=== PATIENT | male | born 1945 | race Caucasian/White ===

== ENCOUNTER → 2017-07-18 | Outpatient (CLI) | payer OTHER | LOC: FIMAGING 15:46 | PROVIDERS: ATTEND Orthopaedic Surgery | DX: M17.12 Unilateral primary osteoarthritis, left knee (principal); M11.262 Other chondrocalcinosis, left knee; M71.22 Synovial cyst of popliteal space [Baker], left knee ==

== ENCOUNTER 2017-08-18 09:25 | Observation (INO) | payer OTHER ==
--- NOTE | 2017-08-18 07:10 | PDHPUP ---
History & Physical Update H&P update statement: This history and physical update is based on an assessment of the patient which was completed after admission or registration (within 24 hours), but prior to the surgery/procedure. H&P update: no change in patient's condition since H&P completed
--- NOTE | 2017-08-18 07:11 | PDIAF ---
- Diagnosis Diagnosis: L knee arthritis Code Status: Full Code - Medication Management Discharge Medications: Medications to Continue on Transfer Acetaminophen [Tylenol 325mg (*)] 650 mg PO DAILY20 07/18/17 [Last Taken Unknown ] Levothyroxine [Synthroid 150 mcg (*)] 150 mcg PO DAILY06 07/18/17 [Last Taken Unknown] Nabumetone [Relafen 500 mg (*)] 500 mg PO BIDMEAL 07/18/17 [Last Taken Unknown] Simvastatin [Zocor] 40 mg PO HS 07/18/17 [Last Taken Unknown] Discharge Medications: Refer to the Discharge Home Medication list for PRN reason. - Orders Services needed: Physical Therapy Activity/Weight Bearing Restrictions: WBAT, daily dressing changes, may shower without dressing, no soaking - Follow Up Care Current Providers and Referrals: Patient,NotPresent [Primary Care Provider] -
[~2017-08-18 09:25] MED LIST: BUPI/epINEPH/KETOROLAC/morphINE IU ONE; CALCIUM CHLORIDE 1 GM/10 ML INJ ONE; NS IV ONE; ROPIVACAINE 0.2% 80 MG, EPINEPHrine 0.2 MG, KETOROLAC TROMETHAMINE 30 MG, morphINE 10 M... IU ONE; THROMBIN (BOVINE) 5,000 UNIT VIAL TP ONE; TRANEXAMIC ACID IV ONE; ceFAZolin 1 GM/5 ML SYR ONE
[2017-08-18] MEDS ORDERED: ceFAZolin 2 GM/SWFI 2 GM/20 ML SYR IVP ONE (10:22)
[2017-08-18] MEDS ORDERED: ACETAMINOPHEN 325 MG TAB PO ONE (10:22)
[2017-08-18] MEDS ORDERED: FAMOTIDINE 20 MG TAB PO ONE (10:22)
[2017-08-18] MEDS ORDERED: LIDOCAINE 1% 2 ML INJ ID PRN (11:01)
[2017-08-18] MEDS ORDERED: LR 1,000 ML IV ONE (11:01)
[2017-08-18] MEDS ORDERED: LIDOCAINE 1% 2 ML INJ ONE (11:05)
--- NOTE | 2017-08-18 11:11 | PDANEPAE ---
ANE Past Medical History - Cardiovascular History Hx Hypertension: No Hx Arrhythmias: No Hx Chest Pain: No Hx Coronary Artery / Peripheral Vascular Disease: No Hx CHF / Valvular Disease: No Hx Palpitations: No Cardiovascular History Comment: HEART MURMUR - Pulmonary History Hx COPD: No Hx Asthma/Reactive Airway Disease: No Hx Recent Upper Respiratory Infection: No Hx Oxygen in Use at Home: No Hx Sleep Apnea: No Sleep Apnea Screening Result - Last Documented: Negative - Neurologic History Hx Cerebrovascular Accident: No Hx Seizures: No Hx Dementia: No - Endocrine History Hx Diabetes: Yes Endocrine History Comment: HYPOTHYROID - Renal History Hx Renal Disorders: No - Liver History Hx Hepatic Disorders: No - Neurological & Psychiatric Hx Hx Neurological and Psychiatric Disorders: No - Cancer History Hx Cancer: No - GI History Hx Gastrointestinal Disorders: No - Other Health History Other Health History: OSTEOARTHRITIS. 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 LT ING HERNIA WITH MESH 04/2014. LT KNEE SCOPE. SALIVARY GLAND ANE Review of Systems Review of Systems: - Exercise capacity METS (RN): 5 METS ANE Patient History - Allergies Allergies/Adverse Reactions: No Known Allergies Allergy (Unverified 07/18/17 15:41) - Home Medications Home Medications: Acetaminophen [Tylenol 325mg (*)] 650 mg PO DAILY20 07/18/17 [Last Taken Unknown ] Levothyroxine [Synthroid 150 mcg (*)] 150 mcg PO DAILY06 07/18/17 [Last Taken Unknown] Nabumetone [Relafen 500 mg (*)] 500 mg PO BIDMEAL 07/18/17 [Last Taken Unknown] Simvastatin [Zocor] 40 mg PO HS 07/18/17 [Last Taken Unknown] - Smoking Hx Smoking Status: Never smoked ANE Labs/Vital Signs - Vital Signs Height: 176.53 cm Weight: 86.183 kg ANE Physical Exam - Airway Neck exam: FROM Mallampati Score: Class 2 Mouth exam: normal dental/mouth exam - Pulmonary Pulmonary: no respiratory distress - Cardiovascular Cardiovascular: regular rate and rhythym - ASA Status ASA Status: II ANE Anesthesia Plan Anesthesia Plan: spinal
[2017-08-18] MEDS ORDERED: PROPOFOL/EMULSION 500 MG/50 ML BOTTLE IV ONE (11:14)
[2017-08-18] MEDS ORDERED: fentaNYL 100 MCG/2 ML INJ ONE (11:14)
[2017-08-18] MEDS ORDERED: BUPIVACAINE/DEXTROSE 7.5MG/ML 2 ML SPINAL AMP SP ONE (11:17)
[2017-08-18] MEDS ORDERED: LIDOCAINE 2% 100 MG/5 ML SYR ONE (11:17)
[2017-08-18] MEDS ORDERED: DEXAMETHASONE 4 MG/ML VIAL ONE (11:17)
[2017-08-18] MEDS ORDERED: PROPOFOL 200 MG/20 ML VIAL ONE ×2 (12:35→13:04)
[2017-08-18] MEDS ORDERED: METOCLOPRAMIDE 10 MG/2 ML VIAL IVP PRN (13:45)
[2017-08-18] MEDS ORDERED: PROMETHAZINE HCL 25 MG/ML INJ IVP PRN (13:45)
[2017-08-18] MEDS ORDERED: PROMETHAZINE HCL 25 MG SUPPR PR PRN (13:45)
[2017-08-18] MEDS ORDERED: ONDANSETRON DISINTEGRATING 4 MG TAB PO PRN (13:45)
[2017-08-18] MEDS ORDERED: ONDANSETRON 4 MG/2 ML VIAL IVP PRN (13:45)
[2017-08-18] MEDS ORDERED: POLYETHYLENE GLYCOL 3350 17 GM PKT PO PRN (13:45)
[2017-08-18] MEDS ORDERED: TEMAZEPAM 15 MG CAP PO PRN (13:45)
[2017-08-18] MEDS ORDERED: LACTULOSE 20 GM/30 ML UDCUP PO PRN (13:45)
[2017-08-18] MEDS ORDERED: DIPHENOXYLATE/ATROPINE LOMOTIL 1 TAB PO PRN (13:45)
[2017-08-18] MEDS ORDERED: diphenhydrAMINE 25 MG CAP PO PRN (13:45)
[2017-08-18] MEDS ORDERED: DIAZEPAM 5 MG TAB PO PRN (13:45)
[2017-08-18] MEDS ORDERED: BISACODYL 10 MG SUPP PR PRN (13:45)
[2017-08-18] MEDS ORDERED: oxyCODONE IR 5 MG TAB PO PRN (13:45)
[2017-08-18] MEDS ORDERED: MAGNESIUM HYDROXIDE 30 ML UDCUP PO PRN (13:45)
[2017-08-18] MEDS ORDERED: NALOXONE HCL 0.4 MG/ML INJ IVP PRN (13:51)
[2017-08-18] MEDS ORDERED: fentaNYL 100 MCG/2 ML INJ IVP PRN (13:51)
--- NOTE | 2017-08-18 13:53 | POSTANESTH ---
Post Anesthetic Evaluation Cardiovascular Status: Similar to Pre-Op Cond Respiratory Status: Similar to Pre-op Cond. Level of Consciousness/Mental Status: Alert and Oriented Pain Control: Adequate, Prn Tx Ordered Nausea/Vomiting Control: Adequate, Prn Tx Ordered Complications Possibly Related to Anesthesia: None Noted
[2017-08-18] MEDS ORDERED: ceFAZolin 2 GM/DEXTROSE 100 ML IV SCH (14:00)
[2017-08-18] MEDS ORDERED: LR 1,000 ML IV SCH (14:00)
[2017-08-18] MEDS: TRANEXAMIC ACID 650 MG TAB PO SCH ×2 (16:14→22:27)
[2017-08-18] MEDS: ACETAMINOPHEN 325 MG TAB PO SCH ×2 (18:06→23:53)
[2017-08-18] MEDS: SENNOSIDES/DOCUSATE SODIUM TAB PO SCH (20:19)
[2017-08-18] MEDS: ceFAZolin 2 GM/SWFI 2 GM/20 ML SYR IVP SCH (20:19)
[2017-08-18] MEDS: FAMOTIDINE 20 MG TAB PO SCH (20:20)
[2017-08-18] MEDS ORDERED: ATORVASTATIN CALCIUM 20 MG TAB PO SCH (21:00)
[2017-08-18] MEDS: ASPIRIN 325 MG TAB PO SCH (22:28)
[2017-08-19] MEDS: ceFAZolin 2 GM/SWFI 2 GM/20 ML SYR IVP SCH (04:32)
[2017-08-19] MEDS: TRANEXAMIC ACID 650 MG TAB PO SCH (05:45)
[2017-08-19] MEDS: ACETAMINOPHEN 325 MG TAB PO SCH (05:45)
[2017-08-19] MEDS ORDERED: LEVOTHYROXINE 150 MCG TAB PO SCH (06:00)
[2017-08-19 07:46] VITALS: BP 147/86; PULSE 60; RESP 14; TEMP 98.2; O2SAT 97
--- NOTE | 2017-08-19 07:56 | SOAPPROG ---
SOAP Progress Note Assessment/Plan: Assessment: s/p left tka Plan:d/c home when cleared by pt dvt precatuions seek attn for increasing pain, or other focal complaint f/u at two weeks 08/19/17 07:54 Subjective: min pain no cp or sob mayur po Objective: Vital Signs Temp Pulse Resp BP Pulse Ox 36.8 C 60 14 147/86 H 97 08/19/17 07:41 08/19/17 07:41 08/19/17 07:41 08/19/17 07:41 08/19/17 07:41 Laboratory Results 08/19/17 04:22 08/18/17 08/19/17 08/20/17 05:59 05:59 05:59 Intake Total 1100 Output Total 1170 Balance -70 dressing intact pf,df,ehl intact neg homans warren xrays stable no fx no lucency ICD10 Worksheet Patient Problems: Problems Problem Status Onset Arthritis of knee, left Acute - ICD10 Problem Qualifiers (1) Arthritis of knee, left
--- NOTE | 2017-08-19 07:56 | PDIAF ---
- Diagnosis Diagnosis: L knee arthritis Code Status: Full Code - Medication Management Discharge Medications: Medications to Continue on Transfer Acetaminophen [Tylenol 325mg (*)] 650 mg PO DAILY20 07/18/17 [Last Taken ] Levothyroxine [Synthroid 150 mcg (*)] 150 mcg PO DAILY06 07/18/17 [Last Taken ] Nabumetone [Relafen 500 mg (*)] 500 mg PO BIDMEAL 07/18/17 [Last Taken 08/12/17] Simvastatin [Zocor] 40 mg PO HS 07/18/17 [Last Taken 08/17/17] Aspirin [Aspirin 325 mg (*)] 325 mg PO DAILY tab 08/19/17 [Last Taken Unknown] oxyCODONE IR [Oxycodone Ir (*)] 5 - 10 mg PO Q3HRS PRN #90 tab 08/19/17 [Last Taken Unknown] Discharge Medications: Refer to the Discharge Home Medication list for PRN reason. - Orders Services needed: Physical Therapy Diet Recommendation: no restrictions on diet Diet Texture: Regular Texture Diet Activity/Weight Bearing Restrictions: WBAT, daily dressing changes, may shower without dressing, no soaking - Follow Up Care Current Providers and Referrals: Patient,NotPresent [Unknown] -
[2017-08-19] MEDS: ASPIRIN 325 MG TAB PO SCH (08:14)
[2017-08-19] MEDS: SENNOSIDES/DOCUSATE SODIUM TAB PO SCH (08:14)
[2017-08-19] MEDS: FAMOTIDINE 20 MG TAB PO SCH (08:15)
== END 2017-08-19 12:04 | disposition home health service (06) ==
LOC: F3N 10:40 → INTOOBSV 10:40 → F3N 15:01
PROVIDERS: ADMIT Orthopaedic Surgery; ATTEND Orthopaedic Surgery
PROC: 3E0U3GC Introduction of Other Therapeutic Substance into Joints, Percutaneous Approach (ICD-10-PCS; principal; 2017-08-18 13:00)
PROC: 8E0YXBZ Computer Assisted Procedure of Lower Extremity (ICD-10-PCS; principal; 2017-08-18 13:00)
PROC: 0SRD0JA Replacement of Left Knee Joint with Synthetic Substitute, Uncemented, Open Approach (ICD-10-PCS; principal; 2017-08-18 13:00)
DX: M17.12 Unilateral primary osteoarthritis, left knee (principal); R03.0 Elevated blood-pressure reading, without diagnosis of hypertension; E78.5 Hyperlipidemia, unspecified; E03.9 Hypothyroidism, unspecified
CPT/HCPCS: 0232T; 20985; 27447; 73560; 88305; 88311; 97110; 97161; 97165; C1776; G8978; G8979; G8980; G8987; G8988; G8989; J0171; J0690; J1100; J1885; J2001; J2270; J2704; J3010

== ENCOUNTER 2017-08-24 14:38 | Emergency (ER) | payer OTHER ==
--- NOTE | 2017-08-24 15:12 | EDPHY ---
H & P Time Seen by Provider: 08/24/17 14:49 HPI/ROS: CHIEF COMPLAINT: Left knee swelling/erythema following surgery HISTORY OF PRESENT ILLNESS: This patient is a 71 y/o male s/p left TKA 08/18/[address] Salvador arriving with his complaining of upper left leg swelling and erythema. He has been feeling well since the surgery and is taking minimal pain medication. He has attended his physical therapy sessions as directed. Today, he and his noted increased swelling and redness around his knee and extending up the medial thigh. They are concerned for DVT. No fever, increased pain, vomiting, weakness, chest pain, shortness of breath, headache, or other associated symptoms. REVIEW OF SYSTEMS: A 10 point review of systems was performed and is negative with the exception of the elements mentioned in the history of present illness. Past Medical/Surgical History: Hypothyroid. Left knee replacement. Social History: Nonsmoker. . at bedside. Lives in [place]. Smoking Status: Never smoked Physical Exam: General Appearance: Alert, pleasant, well-appearing Eyes: Pupils equal and round, no conjunctival pallor or injection ENT, Mouth: Mucous membranes moist Neck: Normal inspection Respiratory: Lungs are clear to auscultation Cardiovascular: Regular rate and rhythm, 2/6 systolic murmur Gastrointestinal: Abdomen is soft and non-tender Neurological: A&O, nonfocal exam Skin: Warm and dry Extremities: Left knee: Surgical incision covered by dressings. Erythema, warmth , and swelling around the incision site on the medial aspect of the knee that extends up medial thigh to inguinal area; no tenderness over this area. Psychiatric: Mood and affect normal Constitutional: Initial Vital Signs Temperature (C) 37.1 C 08/24/17 14:42 Heart Rate 82 08/24/17 14:42 Respiratory Rate 18 08/24/17 14:42 Blood Pressure 155/82 H 08/24/17 14:42 O2 Sat (%) 93 08/24/17 14:42 O2 Delivery Mode Room Air Allergies/Adverse Reactions: No Known Allergies Allergy (Verified 08/24/17 14:41) Home Medications: Medication Instructions Recorded Acetaminophen [Tylenol 325mg (*)] 650 mg PO DAILY20 07/18/17 Levothyroxine [Synthroid 150 mcg 150 mcg PO DAILY06 07/18/17 (*)] Nabumetone [Relafen 500 mg (*)] 500 mg PO BIDMEAL 07/18/17 Simvastatin [Zocor] 40 mg PO HS 07/18/17 Aspirin [Aspirin 325 mg (*)] 325 mg PO DAILY tab 08/19/17 oxyCODONE IR [Oxycodone Ir (*)] 5 - 10 mg PO Q3HRS PRN #90 tab 08/19/17 Cephalexin [Keflex (*)] 500 mg PO QID #40 cap 08/24/17 Medical Decision Making - Diagnostics Imaging Results: Imaging Impressions Extremity Venous Study 08/24/17 14:50 Impression: 1. No deep venous thrombosis in the left lower extremity. 2. 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 Findings discussed with Yin Orellana M.D. at 16:06 hour, 08/24/2017. Imaging: Discussed imaging studies w/ infrastructure technician Radiologist ED Course/Re-evaluation: 71 y/o male presents with left leg erythema, warmth, and swelling following a TKA 08/18/17, six days ago. Exam is more consistent with infection than DVT. Plan for US LLE to r/o DVT. Plan for labs including CBC, chemistries, blood cultures. Plan to consult with Dr. Salvador. The patient will send a photo of his leg to Dr. Salvador for evaluation. 15:[address] Salvador, the patient's orthopedic surgeon. Photos of the patient's leg reviewed with Dr. Salvador. WBC normal. 16:[address] Romero, radiologist. US LLE negative for DVT. 16:32 Removed surgical dressing. The wound is clean, dry, and intact, and not erythematous. There is fluctuance under the surgical wound. Considered arthrocentesis for evaluation for the possibility of septic joint. However, on my exam, the patient's left knee has surrounding erythema laterally as well as medially. Plan to consult with Dr. Salvador. 16:[address] Salvador. Given no DVT, no leukocytosis and no fever, Dr. Salvador doubts infection. We will send the patient home on oral antibiotics and Dr. Salvador will see the patient in the office tomorrow morning. Differential Diagnosis: includes though not limited to joint infection, cellulitis, DVT. - Data Points Laboratory Results: Laboratory Results 08/24/17 15:58 18 15:58 18 08/24/17 15:58 15:58 WBC 6.23 10^3/uL 10^3/uL (3.80-9.50) RBC 3.37 10^6/uL L 10^6/uL (4.40-6.38) Hgb 10.7 g/dL L g/dL (13.7-17.5) Hct 30.8 % L % (40.0-51.0) MCV 91.4 fL fL (81.5-99.8) MCH 31.8 pg pg (27.9-34.1) MCHC 34.7 g/dL g/dL (32.4-36.7) RDW 12.5 % % (11.5-15.2) Plt Count 210 10^3/uL 10^3/uL (150-400) MPV 8.9 fL fL (8.7-11.7) Neut % (Auto) 69.4 % % (39.3-74.2) Lymph % (Auto) 14.4 % L % (15.0-45.0) [place] % (Auto) 12.8 % % (4.5-13.0) Eos % (Auto) 2.4 % % (0.6-7.6) Baso % (Auto) 0.5 % % (0.3-1.7) Nucleat RBC Rel Count 0.0 % % (0.0-0.2) Absolute Neuts (auto) 4.32 10^3/uL 10^3/uL (1.70-6.50) Absolute Lymphs (auto) 0.90 10^3/uL L 10^3/uL (1.00-3.00) Absolute Monos (auto) 0.80 10^3/uL 10^3/uL (0.30-0.80) Absolute Eos (auto) 0.15 10^3/uL 10^3/uL (0.03-0.40) Absolute Basos (auto) 0.03 10^3/uL 10^3/uL (0.02-0.10) Absolute Nucleated RBC 0.00 10^3/uL 10^3/uL (0-0.01) Immature Gran % 0.5 % % (0.0-1.1) Immature Gran # 0.03 10^3/uL 10^3/uL (0.00-0.10) Sodium 139 mEq/L mEq/L (135-145) Potassium 4.1 mEq/L mEq/L (3.5-5.2) Chloride 102 mEq/L mEq/L (97-110) Carbon Dioxide 26 mEq/l mEq/l (22-31) Anion Gap 11 mEq/L mEq/L (8-16) BUN 20 mg/dL mg/dL (7-23) Creatinine 0.8 mg/dL mg/dL (0.7-1.3) Estimated GFR > 60 Glucose 109 mg/dL H mg/dL (70-100) Calcium 8.4 mg/dL L mg/dL (8.5-10.4) Medications Given: Discontinued Medications Cephalexin HCl (Keflex) 500 mg PO EDNOW ONE PRN Reason: Protocol Stop: 08/24/17 16:43 Last Admin: 08/24/17 17:17 Dose: 500 mg Departure - Departure Disposition: Home, Routine, Self-Care Clinical Impression: Cellulitis Qualifiers: Site of cellulitis: extremity Site of cellulitis of extremity: lower extremity Laterality: left Qualified Code(s): L03.116 - Cellulitis of left lower limb Condition: Good Instructions: Cellulitis (ED) Additional Instructions: 1. Follow up with Dr. Salvador in the office tomorrow. 2. Take Keflex as prescribed. 3. Return to the emergency department for increased redness, swelling, warmth, or discharge around your surgical site or for fever, vomiting, chest pain, shortness of breath, or further concerns. Referrals: Evans Freeman MD [Primary Care Provider] - As per Instructions Sherman Salvador MD [Medical Doctor] - As per Instructions (Call tomorrow morning. Dr. Salvador will see you in the morning.) Prescriptions: Cephalexin [Keflex (*)] 500 mg PO QID #40 cap Report Scribed for: Yin Orellana Report Scribed by: Migdalia Bobby Date of Report: 08/24/17 Time of Report: 15:12 Physician Review and Approval Statement: 08/24/17 15:12 Portions of this note were transcribed by a medical lab technologist. I personally performed a history, physical exam, medical decision making, and confirmed accuracy of information the transcribed note.
[2017-08-24 16:09] LABS: PLATELET COUNT 210 10^3/uL (150-400)
[2017-08-24] MEDS ORDERED: CEPHALEXIN 500 MG CAP PO ONE (16:42)
[2017-08-24 17:32] VITALS: BP 132/84
== END 2017-08-24 17:32 | disposition home or self-care (01) ==
DX: L03.116 Cellulitis of left lower limb (principal); M71.22 Synovial cyst of popliteal space [Baker], left knee; Z79.82 Long term (current) use of aspirin

== ENCOUNTER 2017-09-24 05:22 | Observation (INO) | payer OTHER ==
--- NOTE | 2017-09-24 05:30 | EDPHY ---
H & P Stated Complaint: Right leg pain, pt had left knee surgery 08/18 Time Seen by Provider: 09/24/17 05:30 HPI/ROS: HPI CHIEF COMPLAINT: Right leg pain, sharp stabbing HISTORY OF PRESENT ILLNESS: This patient is a 71-year-old male, otherwise pretty healthy, presents emergency room with right leg pain. Patient states this woke him up from sleep around 3:00 a.m. Sharp stabbing pain that right radiates down his right gluteus into his right leg knee. Does not go below his knee. He denies any trauma. He recently last month had left knee surgery at total knee and he has been compensating with his right leg. He describes the pain as sharp stabbing rather intense 8/10 pain. Worse with leg movement. Denies midline back pain. Denies fever chest pain or shortness of breath. Additionally an incidental finding as a erythematous lesion on his gluteus with central clearing like a bug bite. His and him do not feel that this has anything to do with this pain. Right leg is neurovascular intact with good distal pulse, good cap refill. Symptoms are consistent with sciatica Past Medical History: No significant medical history Past Surgical History: Recent left knee surgery TKA. Social History: Denies drugs alcohol tobacco. Family History: Noncontributory ROS REVIEW OF SYSTEMS: A comprehensive 10 point review of systems is otherwise negative aside from elements mentioned in the history of present illness. Exam Constitutional appears well nontoxic no acute distress triage nursing summary reviewed, vital signs reviewed, awake/alert. Eyes normal conjunctivae and sclera, EOMI, PERRLA. HENT normal inspection, atraumatic, moist mucus membranes, no epistaxis, neck supple/ no meningismus, no raccoon eyes. Respiratory clear to auscultation bilaterally, normal breath sounds, no respiratory distress, no wheezing. Cardiovascular rate normal, regular rhythm, no murmur, no edema, distal pulses normal. Gastrointestinal soft, non-tender, no rebound, no guarding, normal bowel sounds, no distension, no pulsatile mass. Genitourinary no CVA tenderness. Musculoskeletal lumbar spine no midline back pain, no midline vertebral tenderness, full range of motion, no calf swelling, no tenderness of extremities , no meningismus, good pulses, neurovascularly intact. Right lower extremity shows a good distal pulse, good cap refill, full range of motion. Skin pink, warm, & dry, no rash, skin atraumatic. Neurologic awake, alert and oriented x 3, AAOx3, moves all 4 extremities equally, motor intact, sensory intact, CN II-XII intact, normal cerebellar, normal vision, normal speech. Psychiatric normal mood/affect. Heme/Lymph/Immune no lymphadenopathy. Differential Diagnosis: Includes but is not limited to in a particular order, sciatica, nerve root compression, annular tear, compression fracture, degenerative joint disease, referred hip pain, SI joint discomfort Medical Decision Making: Plan for this patient IV establishment with IV fentanyl 100 mcg for acute pain control, IV Decadron 10 mg, x-ray lumbar spine and right hip and re-evaluate. Re-evaluation: X-ray of the lumbar spine as well as right hip reviewed by myself. There is degenerative disc disease and joint disease of the lumbar spine. No acute compression fracture visualized. The right hip x-ray also reviewed by myself does not show any acute fracture. 0656: Re-examination at this time patient has ongoing sciatica pain despite multiple rounds of pain medication. He received multiple rounds of Dilaudid, Toradol, fentanyl, Decadron and despite this continues to have pain. I gave him multiple options about going home with pain medicine additionally gave him the option to be admitted the hospital for pain control and further evaluation of this sciatic pain. He would like to be admitted to the hospital for ongoing pain. Lengthy discussion with the patient he prefers to be admitted for pain control. Spoke with Dr. Berrios Who agrees to admit. Intractable right leg pain/sciatica. Source: Patient - Personal History Current Tetanus/Diphtheria Vaccine: Yes Current Tetanus Diphtheria and Acellular Pertussis (TDAP): Yes - Medical/Surgical History Hx Asthma: No Hx Chronic Respiratory Disease: No Hx Diabetes: No Hx Cardiac Disease: No Hx Renal Disease: No Hx Cirrhosis: No Hx Alcoholism: No Hx HIV/AIDS: No Hx Splenectomy or Spleen Trauma: No Other PMH: hypothyroid/l knee replacement - Social History Smoking Status: Never smoked Constitutional: Initial Vital Signs Temperature (C) 36.6 C 09/24/17 05:23 Heart Rate 64 09/24/17 05:23 Respiratory Rate 18 09/24/17 05:23 Blood Pressure 182/105 H 09/24/17 05:23 O2 Sat (%) 97 09/24/17 05:23 O2 Delivery Mode Room Air Allergies/Adverse Reactions: No Known Allergies Allergy (Verified 09/24/17 05:25) Home Medications: Medication Instructions Recorded Acetaminophen [Tylenol 325mg (*)] 650 mg PO DAILY20 07/18/17 Levothyroxine [Synthroid 150 mcg 150 mcg PO DAILY06 07/18/17 (*)] Nabumetone [Relafen 500 mg (*)] 500 mg PO BIDMEAL 07/18/17 Simvastatin [Zocor] 40 mg PO HS 07/18/17 Aspirin [Aspirin 325 mg (*)] 325 mg PO DAILY tab 08/19/17 oxyCODONE IR [Oxycodone Ir (*)] 5 - 10 mg PO Q3HRS PRN #90 tab 08/19/17 Cephalexin [Keflex (*)] 500 mg PO QID #40 cap 08/24/17 Dexamethasone [Decadron 4 MG (*)] 8 mg PO DAILY #3 tab 09/24/17 Hydrocodone/APAP 5/325 [[place] 1 - 2 tab PO Q4H PRN #14 tab 09/24/17 5/325] Medical Decision Making - Data Points Laboratory Results: Laboratory Results 09/24/17 05:40 09/24/17 05:40 09/24/17 09/24/17 05:40 05:40 WBC 6.34 10^3/uL 10^3/uL (3.80-9.50) RBC 4.54 10^6/uL 10^6/uL (4.40-6.38) Hgb 14.2 g/dL g/dL (13.7-17.5) Hct 40.6 % % (40.0-51.0) MCV 89.4 fL fL (81.5-99.8) MCH 31.3 pg pg (27.9-34.1) MCHC 35.0 g/dL g/dL (32.4-36.7) RDW 14.0 % % (11.5-15.2) Plt Count 186 10^3/uL 10^3/uL (150-400) MPV 9.3 fL fL (8.7-11.7) Neut % (Auto) 67.2 % % (39.3-74.2) Lymph % (Auto) 21.1 % % (15.0-45.0) [place] % (Auto) 7.7 % % (4.5-13.0) Eos % (Auto) 3.2 % % (0.6-7.6) Baso % (Auto) 0.6 % % (0.3-1.7) Nucleat RBC Rel Count 0.0 % % (0.0-0.2) Absolute Neuts (auto) 4.26 10^3/uL 10^3/uL (1.70-6.50) Absolute Lymphs (auto) 1.34 10^3/uL 10^3/uL (1.00-3.00) Absolute Monos (auto) 0.49 10^3/uL 10^3/uL (0.30-0.80) Absolute Eos (auto) 0.20 10^3/uL 10^3/uL (0.03-0.40) Absolute Basos (auto) 0.04 10^3/uL 10^3/uL (0.02-0.10) Absolute Nucleated RBC 0.00 10^3/uL 10^3/uL (0-0.01) Immature Gran % 0.2 % % (0.0-1.1) Immature Gran # 0.01 10^3/uL 10^3/uL (0.00-0.10) Sodium 138 mEq/L mEq/L (135-145) Potassium 4.0 mEq/L mEq/L (3.5-5.2) Chloride 105 mEq/L mEq/L (97-110) Carbon Dioxide 21 mEq/l L mEq/l (22-31) Anion Gap 12 mEq/L mEq/L (8-16) BUN 23 mg/dL mg/dL (7-23) Creatinine 0.9 mg/dL mg/dL (0.7-1.3) Estimated GFR > 60 Glucose 107 mg/dL H mg/dL (70-100) Calcium 9.6 mg/dL mg/dL (8.5-10.4) Medications Given: Discontinued Medications Dexamethasone (Decadron Injection) 10 mg IVP EDNOW ONE Stop: 09/24/17 05:41 Last Admin: 09/24/17 05:52 Dose: 10 mg Fentanyl (Sublimaze) 100 mcg IVP EDNOW ONE Stop: 09/24/17 05:44 Last Admin: 09/24/17 05:51 Dose: 100 mcg Hydromorphone HCl (Dilaudid) 0.5 mg IVP EDNOW ONE Stop: 09/24/17 06:28 Last Admin: 09/24/17 06:33 Dose: 0.5 mg Hydromorphone HCl (Dilaudid) 0.5 mg IVP EDNOW ONE Stop: 09/24/17 06:49 Last Admin: 09/24/17 06:49 Dose: 0.5 mg Sodium Chloride (Ns) 1,000 mls @ 0 mls/hr IV ONCE ONE PRN Reason: Wide Open Stop: 09/24/17 05:41 Last Admin: 09/24/17 05:48 Dose: 1,000 mls Ketorolac Tromethamine (Toradol) 15 mg IVP EDNOW ONE Stop: 09/24/17 06:27 Last Admin: 09/24/17 06:32 Dose: 15 mg Ondansetron HCl (Zofran) 4 mg IVP EDNOW ONE Stop: 09/24/17 05:41 Last Admin: 09/24/17 05:48 Dose: 4 mg Departure - Departure Disposition: [facility] Inpatient Acute Clinical Impression: Sciatic leg pain Condition: Good Instructions: Sciatica (ED), Lumbar Radiculopathy (ED) Additional Instructions: 1. Return emergency room if you have worsening pain fever vomiting or you do not feel well. 2. Follow up with her primary care doctor. 3. Decadron and [place] as prescribed. Referrals: Sherman Salvador MD [Primary Care Provider] - As per Instructions Prescriptions: Dexamethasone [Decadron 4 MG (*)] 8 mg PO DAILY #3 tab Hydrocodone/APAP 5/325 [[place] 5/325] 1 - 2 tab PO Q4H PRN #14 tab PRN Reason: Pain, Moderate
[2017-09-24] MEDS ORDERED: NS 1,000 ML IV ONE (05:40)
[2017-09-24] MEDS ORDERED: DEXAMETHASONE 10 MG/ML VIAL IVP ONE (05:40)
[2017-09-24] MEDS ORDERED: ONDANSETRON 4 MG/2 ML VIAL IVP ONE (05:40)
[2017-09-24] MEDS ORDERED: fentaNYL 100 MCG/2 ML INJ IVP ONE (05:43)
[2017-09-24 05:49] LABS: PLATELET COUNT 186 10^3/uL (150-400)
[2017-09-24] MEDS: fentaNYL 100 MCG/2 ML INJ NASAL ONE ×2 (05:49→07:25)
[2017-09-24] MEDS ORDERED: KETOROLAC 15 MG/1 ML SDV IVP ONE (06:26)
[2017-09-24] MEDS ORDERED: HYDROmorphONE/DILAUDID 2 MG/ML INJ IVP ONE ×3 (06:27→07:15)
[2017-09-24] MEDS ORDERED: HYDROmorphONE/DILAUDID 2 MG/ML INJ ONE (06:48)
[2017-09-24] MEDS ORDERED: ONDANSETRON 4 MG/2 ML VIAL IVP PRN (07:18)
[2017-09-24] MEDS ORDERED: HYDROmorphone HCL/NS 0.5 MG/ML SYR IVP PRN (07:18)
[2017-09-24] MEDS ORDERED: ACETAMINOPHEN 325 MG TAB PO PRN (07:18)
[2017-09-24] MEDS ORDERED: oxyCODONE IR 5 MG TAB PO PRN (07:20)
[2017-09-24] MEDS ORDERED: HYDROmorphONE/DILAUDID 6 MG/30 ML PCA IV PRN (08:42)
[2017-09-24] MEDS ORDERED: NALOXONE HCL 0.4 MG/ML INJ IVP PRN (08:42)
[2017-09-24] MEDS ORDERED: LACTULOSE 20 GM/30 ML UDCUP PO PRN (08:47)
[2017-09-24] MEDS ORDERED: MAGNESIUM HYDROXIDE 30 ML UDCUP PO PRN (08:47)
[2017-09-24] MEDS ORDERED: POLYETHYLENE GLYCOL 3350 17 GM PKT PO PRN (08:47)
[2017-09-24] MEDS ORDERED: BISACODYL 10 MG SUPP PR PRN (08:47)
--- NOTE | 2017-09-24 09:30 | GHP ---
[f rep st] HISTORY AND PHYSICAL DATE OF ADMISSION: 09/24/2017 CHIEF COMPLAINT: Back pain. HISTORY OF PRESENT ILLNESS: This is a 71-year-old, relatively healthy male who presents with intract able back pain. He had a left knee total replacement by Dr. Salvador about 1 month ago. This was rela tively uncomplicated. 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 Since then, his right leg is about an inch shorter than the left leg which he attributes hi s new back pain to. He was initially able to completely come off oxycodone about 10 days postoperati ve. Back pain started about 3 weeks ago. Described as right sided, radiating from his central back down his buttocks down his lateral and anterior thigh, stopping around the knee. He notes no associa carlo weakness or numbness in his right or left leg. He has had no fevers, has had no change in his valerie wel or bladder habits. He has had mild back pain throughout his life but nothing like this. He has been taking Tylenol, Aleve. He took 2 of the oxycodone overnight given the severity of the pain. He has had trouble finding a comfortable position to sleep. He presented to the ED today because the p ain got acutely worse last night, starting about 3:00 a.m. PAST MEDICAL/SURGICAL HISTORY: 1. Hypothyroid. 2. Hyperlipidemia. 3. Recent left TKA by Dr. Salvador. 4. Hernia repair. 5. Multiple dental implants. MEDICATIONS: Please see medication reconciliation. ALLERGIES: No known allergies. FAMILY HISTORY: Reviewed and noncontributory. SOCIAL HISTORY: He is accompanied by his . He drinks about a half beer a day. He has never smo ked. REVIEW OF SYSTEMS: A 10-point review of systems is conducted and is negative except per HPI. PHYSICAL EXAM: VITAL SIGNS: Blood pressure 182/100, heart rate 75, respiration rate 18, saturating 94% on 3 L. Temperature is 36.3. GENERAL: The patient is a very pleasant man. He looks quite unco mfortable, moving around almost constantly. HEENT: Normocephalic, atraumatic. CARDIOVASCULAR: A 2 /6 crescendo-decrescendo murmur. PULMONARY: Lungs clear to auscultation bilaterally. ABDOMEN: Sof t, nontender, nondistended. SKIN: No rash. : No [place]. NEUROLOGIC: Alert and oriented x3. He is moving all extremities. MUSCULOSKELETAL: No pinpoint tenderness over any of his lumbar vertebra e or his pelvis. He has 5/5 strength in his right lower extremity. He has sensation to light touch intact in his right lower extremity. Patellar reflex is diminished. Achilles reflex is normal in hi s right foot. PSYCHIATRIC: Normal mood and affect. LABORATORY DATA: CBC is unremarkable. Basic metabolic panel shows a bicarb of 21, glucose of 107, o therwise unremarkable. DATA: 1. Discussed this with Dr. Berrios, will admit to med/surg. 2. I reviewed his chart including note by Dr. Orta, shows that he received significant pain contr ol in the ED which was unsuccessful. 3. I personally viewed and interpreted his lumbar spine as well as his pelvic x-ray. I see no acute compression fractures. Prelim read by Radiology also shows that. IMPRESSION AND PLAN: 1. Intractable back pain: Most consistent with right-sided sciatica. Occurred in the setting of le ft total knee arthroplasty which changed his leg length. Will provide MANAGER SCIENTIFIC for pain control. Schedul ed Tylenol, ibuprofen p.r.n. We will hold on more steroids now as it is not clear that this helped. I have discussed with Jad Calderon of neurosurgery, they will consult. I have ordered an MRI without contrast for further diagnosis. He is neurologically intact. 2. Recent left total knee arthroplasty: This was done by Dr. Salvador. He is recovering well from is. 3. Hypothyroid: Synthroid. 4. Hyperlipidemia: Statin. ADMISSION STATUS: He is admitted to observation status. He is high risk given the use of intravenou s narcotics. /[id number]/MODL
[2017-09-24] MEDS: METHOCARBAMOL 750 MG TAB PO SCH ×3 (09:57→21:53)
[2017-09-24] MEDS: ENOXAPARIN 40 MG/0.4 ML SYR SC SCH (09:57)
[2017-09-24] MEDS: SENNOSIDES/DOCUSATE SODIUM TAB PO SCH ×2 (09:57→21:51)
[2017-09-24] MEDS: ACETAMINOPHEN 500 MG TAB PO SCH ×3 (09:57→21:52)
--- NOTE | 2017-09-24 12:10 | GCON ---
[f rep st] CONSULTATION CONSULTATION/HISTORY AND PHYSICAL CHIEF COMPLAINT: Right lower back pain, right lower extremity pain that started in the middle of Aug. HISTORY OF PRESENT ILLNESS: The patient is a 71-year-old male who is otherwise healthy, who presente d to the emergency department with right lower extremity pain. The patient states he woke up from thi s approximately at 3:00 in the morning. He describes the pain as sharp, stabbing pain that radiates f rom his right gluteus, right lower back, down his right leg in the anterior thigh. He states the pain does not go below his knee. He denies any specific fall, injury or trauma. He states recently he had a left total knee arthroplasty with Dr. Salvador on 08/18/2017, and since then, he feels like he has h ad a difference in his leg length discrepancy, has been compensating for this as this is the cause of some of his right lower extremity pain. He also states he has a bad right knee that will need to be addressed in the future with Dr. Salvador. When he presented to the emergency department, he described 8/10 pain that was worse with leg movement. He was admitted to Internal Medicine, and Dr. High con sulted us today for this pain that he is having. He denies any other symptoms, such as fever, shortne ss of breath or chest pain. No nausea or vomiting. He is eating and drinking fine. He is voiding well . He has no numbness in his groin. Otherwise, he is healthy. PAST MEDICAL HISTORY: The patient has thyroid disorder, high cholesterol, and is recovering from a t otal knee arthroplasty, is on some pain medication as result. PAST SURGICAL HISTORY: 1. Left total knee arthroplasty with Dr. Salvador on 08/18/2017. 2. Hernia repair approximately 3 years ago. MEDICATIONS: Prior to admission, Tylenol, aspirin, Keflex, Synthroid, Relafen, oxycodone, and Zocor. ALLERGIES: No known drug allergies. FAMILY HISTORY: Noncontributory and reviewed. SOCIAL HISTORY: Patient is . He lives in the [place] area. He has 4 children, 6 grandchildren . He does not smoke. Does not drink any excessive alcohol. No history of drug use. IMMUNIZATIONS: Reported up to date. TRAVEL: No recent travel. REVIEW OF SYSTEMS: Ten-point review of systems reviewed and noted in HPI, otherwise negative. PHYSICAL EXAM: GENERAL: This is an awake, alert, oriented male, in no acute distress. MOST RECENT SHAKIR SIGNS: Blood pressure 182/100, with a MAP of 124, heart rate 75, 18 respirations, 94% on 3 L, tem perature 36.3. HEENT: Head is normocephalic, atraumatic. Pupils are equal, round, reactive to light. EOMs intact. Full visual caldera by confrontation. Ears are patent. Nose is patent. NECK: Soft and sup ple, midline tenderness, full range of motion with flexion, extension, lateral bending and rotation. RESPIRATORY AND CARDIAC: Deferred. ABDOMEN: Soft, nontender. No peritoneal signs. AND RECTAL: Defe rred. NEURO: Patient is awake, alert, oriented to name, place, location, date, time, and situation. M gail is intact to immediate, past, and current events. Speech: No aphasia, dysarthria, dysphonia. Cr anial nerves 2-12 grossly intact. Motor: Patient has 5/5 strength in all muscle groups of bilateral u pper and lower extremities to include deltoids, biceps, triceps, brachioradialis, wrist flexors and e xtensors, production staff worker and intrinsic fingers, iliopsoas, quadriceps, hamstring, plantar flexion, dorsiflexion , EHL testing. Sensation is grossly intact to light touch. Reflexes of the biceps, triceps, brachiora dialis, knee jerk and ankle jerk 2+/4. Young's was negative. No clonus. MEDICAL DECISION MAKING: Diagnostic studies, laboratory tests obtained on 09/24/2017 at 0540 showed a white count of 6.34, an H and H of 14.2 and 40.6, with a platelet count of 186. Chemistry, 09/25/19 18: Sodium 138, potassium 4.0, chloride 105, CO2 21, BUN 23, creatinine 0.9. Diagnostic studies/imaging: Lumbar spine x-rays were obtained, which show degenerative changes, most severe at 4-5 and at 2-3, with multiple osteophytes noted. There is no obvious "spondy." No acute fra cture noted. Pending MRI of the lumbar spine. IMPRESSION: 1. History of left total knee arthroplasty on 08/18/[address] Salvador. 2. Approximately 1-month course of worsening right lower back pain and right lower extremity pain wi th pending MRI. PLAN/DISCUSSION: The patient is a 71-year-old male who is otherwise healthy. He takes medication for cholesterol and thyroid. He presents with approximately 1-month history of right lower back pain rigoberto t then progressed into the right anterior thigh. He describes pain only in this area, has no pain neli n the back of the calf or down below the knee. He had x-rays done of the lumbar spine. We will follow up with an MRI of the lumbar spine as well. Patient will be seen and evaluated both by me and Dr. Ruby cabrera. We will follow up on the imaging, specifically the MRI, and develop a treatment plan acc ordingly. /[id number]/MODL
[2017-09-24] MEDS ORDERED: DIAZEPAM 5 MG/ML 1 ML SYR ONE (13:12)
[2017-09-24] MEDS ORDERED: DIAZEPAM 5 MG/ML 1 ML SYR IVP ONE (13:45)
[2017-09-25] MEDS: DIPHENHYDRAMINE PO SCH ×2 (01:25→21:24)
[2017-09-25] MEDS: NAPROXEN SOD PO SCH ×2 (01:25→21:24)
[2017-09-25] MEDS: LEVOTHYROXINE 150 MCG TAB PO SCH (06:07)
[2017-09-25] MEDS: ACETAMINOPHEN 500 MG TAB PO SCH ×3 (10:17→21:25)
[2017-09-25] MEDS: SENNOSIDES/DOCUSATE SODIUM TAB PO SCH ×2 (10:17→21:31)
[2017-09-25] MEDS: ATORVASTATIN CALCIUM 40 MG TAB PO SCH (10:17)
[2017-09-25] MEDS: ENOXAPARIN 40 MG/0.4 ML SYR SC SCH (10:18)
[2017-09-25] MEDS: METHOCARBAMOL 750 MG TAB PO SCH ×3 (10:18→21:26)
--- NOTE | 2017-09-25 10:22 | NEUSURGPN ---
Assessment/Plan: A/P:71 yo male with low back pain and right leg pain and a far lateral disc hernation at L3/4 -Pain improved with valium -MRI shows far lateral disc herniation at L3/4 causing nerve impingement and most likely cause of right leg pain -Seen and discussed with Dr. Appiah. Will try conservative therapy first with injection and PT -L3/4 Right TFESI ordered today by IR -Ok to go home after injection -Will follow up as outpatient with Dr. Appiah in 2 weeks S: Patient with improved leg pain with valium. 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 Wondering about options for surgery vs injection O: NAD, VSS EOMI, PERRL BLE 5/5= Sensation intact to lt touch - Physician Discussed Patient with : Belen Patient Seen by : Belen Neurosurgery Physical Exam - Vitals, I&O, Labs I and O 09/24/17 09/25/17 09/26/17 05:59 05:59 05:59 Intake Total 1154.6 300 Output Total 850 250 Balance 304.6 50 Weight 89.494 kg Intake: Oral (ml) 800 IV Intake (ml) 300 IV Infused (ml) 354.6 0 HYDROmorphone HCL See 1.6 0 Protocol IV PRN PRN Rx#: [id number] Ns 1,000 ml @ Wide Open 353 IV ONCE ONE Rx#: [id number] Output: Urine (ml) 850 250 Toilet 500 Urinal 350 250 Other: Number of Voids Toilet 1 Vital Signs Temp Pulse Resp BP Pulse Ox 36.6 C 66 18 138/82 H 94 09/25/17 08:00 09/25/17 08:00 09/25/17 08:00 09/25/17 08:00 09/25/17 08:00 ICD10 Worksheet Patient Problems: Problems Problem Status Onset Sciatic leg pain Acute Arthritis of knee, left Acute
--- NOTE | 2017-09-25 15:59 | ASMTCMCOM ---
CM Note CM Note Notes: Anticipate pt will have no DC needs. Date Signed: 09/25/2017 03:59 PM Electronically Signed By:Ann Marie Rosas LCSW
--- NOTE | 2017-09-25 16:12 | GDS ---
[f rep st] DISCHARGE SUMMARY ALL DIAGNOSES: 1. Right-sided L3 nerve root compression due to extruded free fragment from disk herniation, causing severe radicular pain. 2. Intractable pain. 3. Recent left total knee arthroplasty by Dr. Salvador. HOSPITAL COURSE: A 71-year-old man, admitted with intractable pain. MRI showed severe L3 nerve root compression due to disk herniation. His pain markedly improved with Valium. He had previously not had significant pain relief with IV narcotics. He was seen by Neurosurgery, who recommended steroid injection and conservative management. The patient is amenable to this. He will follow up with Dr. Glover in 2 weeks to assess his response to the steroid injection. I provided him with a prescription for Valium. He had oxycodone previously from his left TKA. I warned him about the side affects of Valium. I apprised Dr. Salvador of his admission. There were no active orthopedic issues. Plan is to discharge after his steroid injection today if there are no issues. /[id number]/MODL MTDD
[2017-09-25] MEDS ORDERED: DIAZEPAM 5 MG TAB PO PRN (16:21)
[2017-09-25] MEDS ORDERED: TRIAMCINOLONE ACETONIDE 200 MG/5 ML MDV IM ONE (19:40)
[2017-09-25] MEDS ORDERED: IOPAMIDOL (ISOVUE-M 300) 15 ML VIAL ONE (19:41)
--- NOTE | 2017-09-25 20:45 | PDRADPN ---
Radiology Procedure Note Date of Procedure: 09/25/17 Radiologist: Louis Barrett Anesthesia: Local (Specify) Pre-op Diagnosis: L3/4 hernation Post-op Diagnosis: same Indication: pain Procedure: DANK Finding(s): epidural conformation of contrast prior to injection Inf/Abcess present in the surg proc area at time of surgery?: No EBL: Minimal Complications: nnone
[2017-09-26] MEDS: LEVOTHYROXINE 150 MCG TAB PO SCH (06:26)
[2017-09-26] MEDS: METHOCARBAMOL 750 MG TAB PO SCH (08:28)
[2017-09-26] MEDS: ATORVASTATIN CALCIUM 40 MG TAB PO SCH (08:28)
[2017-09-26] MEDS: SENNOSIDES/DOCUSATE SODIUM TAB PO SCH (08:29)
[2017-09-26] MEDS: ENOXAPARIN 40 MG/0.4 ML SYR SC SCH (08:29)
[2017-09-26] MEDS: ACETAMINOPHEN 500 MG TAB PO SCH (08:30)
[2017-09-26 08:33] VITALS: BP 155/90
--- NOTE | 2017-09-26 09:30 | GDS ---
[f rep st] DISCHARGE SUMMARY Please see admission history and physical and discharge summary by Dr. High, discharge summary kale ed yesterday. The patient's steroid injection did not happen until late in the evening so he stayed overnight. The patient is without complaint and ambulating without pain. Prescriptions have been pr ovided. Please see Dr. High's discharge summary yesterday for further details regarding the clini dorota course of his hospital stay. /[id number]/MODL
--- NOTE | 2017-09-26 09:50 | SOAPPROG ---
ELSY Progress Note Assessment/Plan: Assessment: 71 yo male with severe right L3 radicular pain doing much better after L3 TFESI yesterday neuro intact Plan: DC home today with 2 week outpatient follow up with Dr. Appiah 09/26/17 09:48 Subjective: out of bed in chair. Right leg pain much better since Right L3 TFESI yesterday. Objective: Vital Signs Temp Pulse Resp BP Pulse Ox 36.7 C 68 16 155/90 H 92 09/26/17 08:00 09/26/17 08:00 09/26/17 08:00 09/26/17 08:00 09/26/17 08:00 09/25/17 09/26/17 09/27/17 05:59 05:59 05:59 Intake Total 1154.6 300 Output Total 850 875 Balance 304.6 -575 Neuro: URBANO, sens +LT ambulatory oriented x 4, follows commands ICD10 Worksheet Patient Problems: Problems Problem Status Onset Sciatic leg pain Acute Arthritis of knee, left Acute
--- NOTE | 2017-09-26 10:16 | ASMTLACE ---
LACE Length of stay for Answers: 2 days current admission Acuity / Level of Answers: Yes Care: Did the patient have an inpatient admission? Comorbidities - select Answers: Other Notes: Hypothyroid all that apply # of Emergency department Answers: 1-2 visits in the last 6 months Score: 7 Date Signed: 09/26/2017 10:15 AM Electronically Signed By:Ann Marie Rosas LCSW
== END 2017-09-26 10:23 | disposition home or self-care (01) ==
LOC: F1N 08:11
PROVIDERS: ADMIT Family Medicine; ATTEND Family Medicine
PROC: 3E0S33Z Introduction of Anti-inflammatory into Epidural Space, Percutaneous Approach (ICD-10-PCS; principal; 2017-09-24)
DX: M51.16 Intervertebral disc disorders with radiculopathy, lumbar region (principal); M48.061 Spinal stenosis, lumbar region without neurogenic claudication; E78.5 Hyperlipidemia, unspecified; E03.9 Hypothyroidism, unspecified; Z96.652 Presence of left artificial knee joint; Z79.899 Other long term (current) drug therapy
CPT/HCPCS: 62323; 72100; 72148; 73502; 96361; 96374; 96375; 97161; 97165; 97535; 99285; G8978; G8979; G8980; G8987; G8988; G8989; J1100; J1170; J1650; J1885; J2405; J3010; J3301; J3360; Q9967

== ENCOUNTER → 2017-09-26 | Outpatient (CLI) | payer OTHER | LOC: FIMAGING 13:47 → FLAB 13:47 → EDSTATUS 13:48 | PROVIDERS: ATTEND Orthopaedic Surgery | DX: Z01.818 Encounter for other preprocedural examination (principal); M17.11 Unilateral primary osteoarthritis, right knee ==

== ENCOUNTER → 2017-10-06 | Outpatient (CLI) | payer OTHER | LOC: BMCIMAGING 14:09 | PROVIDERS: ATTEND Physician Assistant | DX: Z47.1 Aftercare following joint replacement surgery (principal); Z96.652 Presence of left artificial knee joint ==

== ENCOUNTER 2017-10-09 10:16 | Observation (INO) | payer OTHER ==
--- NOTE | 2017-10-09 10:24 | EDPHY ---
H & P Stated Complaint: back pain r side/sciatica r side/hospitalized 2 weeks ago for same Time Seen by Provider: 10/09/17 10:22 HPI/ROS: CHIEF COMPLAINT: Back pain HISTORY OF PRESENT ILLNESS: 71-year-old male history of L3-4 disc herniation and impingement, recent hospitalization for pain along same location with TEFSI injection which provided approximately 1 week of pain relief, returns to the ER complaining of progressive pain along same location for the past 3 days. He is on a regimen of Naprosyn, Tylenol which has not been alleviating his symptoms. He has with him not getting sleep secondary to pain. He arrives via private vehicle. He denies: Incontinence, retention, saddle anesthesia. PRIMARY CARE PROVIDER: REVIEW OF SYSTEMS: A ten point review of systems was performed and is negative with the exception of the items mentioned in the HPI PAST MEDICAL & SURGICAL HISTORY: Transforaminal epidural steroid injection in September [address] Glover secondary to L3-4 herniation and nerve impingement SOCIAL HISTORY: nonsmoker no drug use PHYSICAL EXAM (Prior to examination, patient consented to physical exam, hands were washed and my usual and customary physical exam procedures followed) 1) GENERAL: Well-developed, well-nourished, alert and oriented. Appears to be in no acute distress. 2) HEAD: Normocephalic, atraumatic 3) HEENT: Pupils equal, round, reactive to light bilaterally. Sclera anicteric. Nasopharynx, oropharynx, clear, no lesions. 4) NECK: Full range of motion, no meningeal signs. 5) LUNGS: Clear auscultation bilaterally, no wheezes, no rhonchi, no retractions. 6) HEART: Regular rate and rhythm, no murmur, no heave, no gallop. 7) ABDOMEN: No guarding, no rebound, no focal tenderness, negative McBurney's, negative Quispe's, negative Rovsing's, negative peritoneal sign, 8) MUSCULOSKELETAL: Moving all extremities, no focal areas of tenderness, no obvious trauma. No peripheral edema or discoloration. 9) BACK: tender to palpation paraspinous muscle. No CVA tenderness, no midline vertebral tenderness, no fluctuance, no step-off, no obvious trauma, no visual or palpable abnormality. Patella, Achilles reflexes intact to bilateral strength 5/5 10) SKIN: No rash, no petechiae. 11) NEURO: Awake, alert, and oriented to person, place and time. Answers questions appropriately. There were no obvious focal neurologic abnormalities. No cerebellar dysfunction. Normal steady gait. Upper and lower extremities bilaterally with strength 5 / 5, reflexes 2+.. DIFFERENTIAL DIAGNOSIS: In no particular order, including but not limited to, fracture, sprain/strain, cauda equina, spinal infectious etiology. - Personal History Current Tetanus/Diphtheria Vaccine: Yes - Medical/Surgical History Hx Asthma: No Hx Chronic Respiratory Disease: No Hx Diabetes: No Hx Cardiac Disease: No Hx Renal Disease: No Hx Cirrhosis: No Hx Alcoholism: No Hx HIV/AIDS: No Hx Splenectomy or Spleen Trauma: No Other PMH: hypothyroid/l knee replacement, hyperlipidemia, hernia repair 2014 - Social History Smoking Status: Never smoked Constitutional: Initial Vital Signs Temperature (C) 36.4 C 10/09/17 10:19 Heart Rate 61 10/09/17 10:19 Respiratory Rate 18 10/09/17 10:19 Blood Pressure 165/110 H 10/09/17 10:19 O2 Sat (%) 98 10/09/17 10:19 O2 Delivery Mode Room Air O2 (L/minute) 3 Allergies/Adverse Reactions: No Known Allergies Allergy (Verified 10/09/17 10:17) Home Medications: Medication Instructions Recorded Levothyroxine [Synthroid 150 mcg 150 mcg PO DAILY06 07/18/17 (*)] Aspirin [Aspirin 325 mg (*)] 325 mg PO DAILY tab 08/19/17 Acetaminophen [Tylenol ES 500 mg 500 mg PO Q4HRS PRN 09/24/17 (*)] Atorvastatin Calcium [Lipitor 40 40 mg PO DAILY 09/24/17 mg (*)] Multivitamins [Multivitamin (*)] 1 each PO DAILY 09/24/17 Naproxen Sod/Diphenhydramine 1 each PO HS 09/24/17 [Aleve Pm Caplet] celeCOXIB [Celebrex (*)] 200 mg PO DAILY 09/24/17 Diazepam [Valium 5 MG (*)] 5 mg PO TID PRN #30 tab 09/25/17 Naproxen Sodium [Aleve 220 MG (*)] 220 mg PO DAILY 10/09/17 Medical Decision Making ED Course/Re-evaluation: 10:40 a.m. : old medical records reviewed. Patient notes that he has had relief with IV Valium which will be administered to him. At this time he has no neuro deficits. I do not think that emergent imaging is indicated per to kill early in the presence of recent MRI in September. Care of patient under supervision of secondary supervising physician Dr Orellana . 11:50 a.m.: Re-evaluation, patient remains in exquisite amount of pain, is unable to ambulate, does not feel he can be discharged home. Plan will be admission for pain control and neurosurgery consultation. 12:04 p.m.: Consultation with Dr. Peralta will consult Neurosurgery 12:39 p.m.: Consultation with Aleyda, hospitalist, admit . - Data Points Laboratory Results: Laboratory Results 10/09/17 10:50 10/09/17 10:50 10/09/17 10/09/17 10/09/17 10:50 10:50 10:50 WBC 6.73 10^3/uL 10^3/uL (3.80-9.50) RBC 4.81 10^6/uL 10^6/uL (4.40-6.38) Hgb 14.6 g/dL g/dL (13.7-17.5) Hct 43.1 % % (40.0-51.0) MCV 89.6 fL fL (81.5-99.8) MCH 30.4 pg pg (27.9-34.1) MCHC 33.9 g/dL g/dL (32.4-36.7) RDW 13.3 % % (11.5-15.2) Plt Count 237 10^3/uL 10^3/uL (150-400) MPV 9.5 fL fL (8.7-11.7) Neut % (Auto) 73.5 % % (39.3-74.2) Lymph % (Auto) 17.5 % % (15.0-45.0) [place] % (Auto) 7.1 % % (4.5-13.0) Eos % (Auto) 1.2 % % (0.6-7.6) Baso % (Auto) 0.3 % % (0.3-1.7) Nucleat RBC Rel Count 0.0 % % (0.0-0.2) Absolute Neuts (auto) 4.94 10^3/uL 10^3/uL (1.70-6.50) Absolute Lymphs (auto) 1.18 10^3/uL 10^3/uL (1.00-3.00) Absolute Monos (auto) 0.48 10^3/uL 10^3/uL (0.30-0.80) Absolute Eos (auto) 0.08 10^3/uL 10^3/uL (0.03-0.40) Absolute Basos (auto) 0.02 10^3/uL 10^3/uL (0.02-0.10) Absolute Nucleated RBC 0.00 10^3/uL 10^3/uL (0-0.01) Immature Gran % 0.4 % % (0.0-1.1) Immature Gran # 0.03 10^3/uL 10^3/uL (0.00-0.10) PT 12.7 SEC SEC (12.0-15.0) INR 0.93 (0.83-1.16) APTT 28.4 SEC SEC (23.0-38.0) Sodium 140 mEq/L mEq/L (135-145) Potassium 4.0 mEq/L mEq/L (3.5-5.2) Chloride 101 mEq/L mEq/L (97-110) Carbon Dioxide 25 mEq/l mEq/l (22-31) Anion Gap 14 mEq/L mEq/L (8-16) BUN 18 mg/dL mg/dL (7-23) Creatinine 0.8 mg/dL mg/dL (0.7-1.3) Estimated GFR > 60 Glucose 103 mg/dL H mg/dL (70-100) Calcium 9.6 mg/dL mg/dL (8.5-10.4) Medications Given: Discontinued Medications Diazepam (Valium) 10 mg IVP EDNOW ONE Stop: 10/09/17 10:42 Last Admin: 10/09/17 11:08 Dose: 10 mg Hydralazine HCl (Apresoline) 10 mg IVP EDNOW ONE Stop: 10/09/17 14:00 Last Admin: 10/09/17 14:01 Dose: 10 mg Hydralazine HCl (Apresoline) 10 mg IVP ONCE ONE Stop: 10/09/17 14:01 Last Admin: 10/09/17 14:06 Dose: Not Given Sodium Chloride (Ns) 1,000 mls @ 3,000 mls/hr IV ONCE ONE Stop: 10/09/17 11:06 Last Admin: 10/09/17 11:07 Dose: 1,000 mls Oxycodone/Acetaminophen (Percocet 5/325) 1 tab PO EDNOW ONE Stop: 10/09/17 11:48 Last Admin: 10/09/17 11:48 Dose: 1 tab Departure - Departure Disposition: [facility]
[2017-10-09] MEDS ORDERED: DIAZEPAM 5 MG/ML 1 ML SYR IVP ONE (10:41)
[2017-10-09] MEDS ORDERED: NS 1,000 ML IV ONE (10:47)
[2017-10-09] MEDS ORDERED: OXYCODONE/APAP 5/325 TAB PO ONE (11:47)
[2017-10-09] MEDS ORDERED: OXYCODONE/APAP 5/325 TAB ONE (11:48)
[2017-10-09 12:04] LABS: PLATELET COUNT 237 10^3/uL (150-400)
[2017-10-09 12:49] LABS: INR 0.93 (0.83-1.16); PROTIME(PATIENT) 12.7 SEC (12.0-15.0)
[2017-10-09] MEDS ORDERED: hydrALAZINE 20 MG/ML VIAL ONE (13:58)
[2017-10-09] MEDS ORDERED: hydrALAZINE 20 MG/ML VIAL IVP ONE ×2 (13:59→14:00)
--- NOTE | 2017-10-09 14:18 | GCON ---
[f rep st] CONSULTATION EMERGENCY ROOM CONSULTATION DATE OF CONSULTATION: 10/09/2017 CHIEF COMPLAINT: Right lower back pain, right leg pain. HISTORY OF PRESENT ILLNESS: Patient is a 71-year-old gentleman, who was seen by Dr. Glover in the office approximately 2 weeks ago. The patient underwent a MRI of the lumbar spine which demonstrated a far lateral L3-4 disk herniation. Patient underwent an injection last week which was not beneficial. Patient came to the emergency room today, unable to control his pain. Patient describes his symptoms as right lower back, extending into his hip, and down into his right quad. Patient denies any weakness, any saddle anesthesia, and denies any issues with his bowel or bladder. The patient currently is n.p.o. REVIEW OF SYSTEMS: 10-point review of systems was performed and negative aside from what was mentioned in HPI. MEDICAL HISTORY: Hypothyroid. PAST SURGICAL HISTORY: Left knee arthroplasty on August 18, 2017. L3-4 epidural injection last week. CURRENT MEDICATIONS: Synthroid 150 mcg p.o. daily, aspirin 325 mg p.o. daily ( last dose was yesterday, October 08), Tylenol 500 mg q.4 p.r.n., Lipitor 40 mg p.o. daily, multivitamin 1 p.o. daily, Aleve 1 p.o. q.h.s., Celebrex 200 mg p.o. daily, Valium 5 mg p.o. t.i.d. p.r.n. ALLERGIES: No known drug allergies. SOCIAL HISTORY: Patient is . 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 He drinks 1 beer per day. He has never smoked cigarettes. He does not use illicit drugs. LABORATORY RESULTS: White blood cell count 6.73, hematocrit 42.1, hemoglobin 14.6, platelets 237. PT 12.7, INR 0.93, APTT 28.4. Sodium 140, potassium 4.0, BUN 18, creatinine 0.8, glucose 103. IMAGING: MRI of lumbar spine, performed on September 24, 2017, at [facility], demonstrated an L3-4 free fragment disk herniation in the right foramen. PHYSICAL EXAM: VITAL SIGNS: Blood pressure is 177/112, heart rate is 62, respiratory rate 16, oxygen saturation 98% on 3 L nasal cannula, temperature is 36.4 degrees Celsius. HEENT: Head is normocephalic and atraumatic. Pupils are equal, round, and reactive to light. EOMIs intact. RESPIRATORY AND CARDIAC : Deferred. ABDOMEN: Deferred. GENITOURINARY AND RECTAL: Deferred. NEUROLOGIC: The patient is awake, alert, and oriented to name, place, time, location, and situation. His memory is intact to immediate, past, and current events. Speech: No aphasia or dysphonia. Cranial nerves 2-12 are grossly intact. Motor: Patient has 5/5 strength in all muscle groups and bilateral upper and lower extremities to include deltoids, biceps, triceps, brachioradialis, wrist flexion, extensors, psychologist engineering, intrinsic fingers, iliopsoas, quadriceps, hamstrings, plantar flexion, dorsiflexion, EHL testing. Sensation is grossly intact to light touch throughout all dermatomal distributions and bilateral lower extremities. Positive straight leg raise on the right, negative on the left. Negative DANIELLE test bilaterally. Reflexes: Knee jerk and ankle jerk are 2+ out of 4. Toes are downgoing bilaterally. Babinski negative, and there is no evidence of clonus. ASSESSMENT AND PLAN: Patient is a 71-year-old gentleman who came to the emergency department today for uncontrollable pain due to a free-fragment disk herniation in the right foramen at L3-4. Patient underwent an epidural steroid injection last week with the Radiology Department at [facility] which, unfortunately, was not effective to his pain. Patient has been taking NSAIDs, as well as muscle relaxers, without any beneficial relief. His pain is currently uncontrolled with oral narcotics. Patient is currently n.p.o., has not had anything to eat or drink today. We will try and get him on the operating room schedule with Dr. Glover or one of the other surgeons in our practice later today or first thing tomorrow. Please call neurosurgery with any questions or concerns. The patient was seen and examined by myself and Dr. Glover in the emergency department on October 09, 2017, at 12:15 p.m. /[id number]/MODL MTDD
[2017-10-09] MEDS ORDERED: BACITRACIN 50,000 UNITS/10 ML SYR IRR ONE (15:04)
[2017-10-09] MEDS ORDERED: CHLORHEXIDINE GLUC HIBICLENS 118 ML BTL TP ONE (15:04)
[2017-10-09] MEDS ORDERED: THROMBIN (BOVINE) 20,000 UNIT VIAL TP ONE (15:04)
[2017-10-09] MEDS ORDERED: BUPIVACAINE 0.25% 30 ML SDV ONE (15:04)
[2017-10-09] MEDS ORDERED: LR 1,000 ML IV ONE (15:04)
--- NOTE | 2017-10-09 15:54 | PDANEPAE ---
ANE Past Medical History - Cardiovascular History Hx Hypertension: No Hx Arrhythmias: No Hx Chest Pain: No Hx Coronary Artery / Peripheral Vascular Disease: No Hx CHF / Valvular Disease: No Hx Palpitations: No Cardiovascular History Comment: HEART MURMUR - Pulmonary History Hx COPD: No Hx Asthma/Reactive Airway Disease: No Hx Recent Upper Respiratory Infection: No Hx Oxygen in Use at Home: No Hx Sleep Apnea: No Sleep Apnea Screening Result - Last Documented: Positive - Neurologic History Hx Cerebrovascular Accident: No Hx Seizures: No Hx Dementia: No - Endocrine History Hx Diabetes: No Endocrine History Comment: HYPOTHYROID - Renal History Hx Renal Disorders: No - Liver History Hx Hepatic Disorders: No - Neurological & Psychiatric Hx Hx Neurological and Psychiatric Disorders: No - Cancer History Hx Cancer: No - GI History Hx Gastrointestinal Disorders: No - Other Health History Other Health History: OSTEOARTHRITIS. 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 LT ING HERNIA WITH MESH 04/2014. LT KNEE SCOPE. SALIVARY GLAND ANE Review of Systems Review of Systems: - Exercise capacity METS (RN): 6 METS ANE Patient History - Allergies Allergies/Adverse Reactions: No Known Allergies Allergy (Verified 10/09/17 10:17) - Home Medications Home Medications: Levothyroxine [Synthroid 150 mcg (*)] 150 mcg PO DAILY06 07/18/17 [Last Taken ] Acetaminophen [Tylenol ES 500 mg (*)] 500 mg PO Q4HRS PRN 09/24/17 [Last Taken 10/08/17] Atorvastatin Calcium [Lipitor 40 mg (*)] 40 mg PO DAILY 09/24/17 [Last Taken 07/27] Multivitamins [Multivitamin (*)] 1 each PO DAILY 09/24/17 [Last Taken 10/08/17] Naproxen Sod/Diphenhydramine [Aleve Pm Caplet] 1 each PO HS 09/24/17 [Last Taken 10/08/17] celeCOXIB [Celebrex (*)] 200 mg PO DAILY 09/24/17 [Last Taken 10/08/17] Naproxen Sodium [Aleve 220 MG (*)] 220 mg PO DAILY 10/09/17 [Last Taken 10/08/17 ] - NPO status NPO Since - Liquids (Date): 10/08/17 NPO Since - Liquids (Time): 20:30 NPO Since - Solids (Date): 10/08/17 NPO Since - Solids (Time): 20:30 - Anes Hx Anes Hx: no prior problems - Smoking Hx Smoking Status: Never smoked ANE Labs/Vital Signs - Labs Result Diagrams: 10/09/17 10:50 10/09/17 10:50 - Vital Signs Blood Pressure: 150/91 Heart Rate: 67 Respiratory Rate: 16 O2 Sat (%): 98 Height: 177.8 cm Weight: 83.915 kg ANE Physical Exam - Airway Neck exam: FROM Mallampati Score: Class 2 Mouth exam: normal dental/mouth exam - Pulmonary Pulmonary: no respiratory distress, no rales or rhonchi, clear to auscultation - Cardiovascular Cardiovascular: regular rate and rhythym, no murmur, rub, or gallop - ASA Status ASA Status: II ANE Anesthesia Plan Anesthesia Plan: general endotracheal anesthesia
[2017-10-09] MEDS ORDERED: fentaNYL 100 MCG/2 ML INJ ONE ×2 (15:55→16:47)
[2017-10-09] MEDS ORDERED: PROPOFOL 200 MG/20 ML VIAL ONE (15:55)
[2017-10-09] MEDS ORDERED: ceFAZolin 2 GM in D5W 100 ML IV ONE (15:57)
[2017-10-09] MEDS ORDERED: DEXAMETHASONE 4 MG/ML VIAL ONE ×2 (15:58)
[2017-10-09] MEDS ORDERED: SUCCINYLCHOLINE CHLORIDE 200 MG/10 ML SYR IVP ONE (15:58)
[2017-10-09] MEDS ORDERED: ONDANSETRON 4 MG/2 ML VIAL ONE (15:58)
[2017-10-09] MEDS ORDERED: LIDOCAINE 2% 5 ML SDV ONE (15:58)
[2017-10-09] MEDS ORDERED: ceFAZolin 2 GM/SWFI 2 GM/20 ML SYR IVP ONE (16:00)
[2017-10-09] MEDS ORDERED: DEPO METHYLPREDNISOLONE 40 MG/ML SDV ONE (16:10)
[2017-10-09] MEDS ORDERED: ceFAZolin 1 GM VIAL ONE ×2 (16:20)
[2017-10-09] MEDS ORDERED: PHENYLEPHRINE HCL 100 MCG/ML SYR ONE (16:26)
[2017-10-09] MEDS ORDERED: GLYCOPYRROLATE 0.2 MG/1 ML VIAL ONE (16:53)
[2017-10-09] MEDS ORDERED: DIAZEPAM 5 MG TAB PO PRN (17:02)
[2017-10-09] MEDS ORDERED: PROMETHAZINE HCL 25 MG/ML INJ IVP PRN ×2 (17:04→17:11)
[2017-10-09] MEDS ORDERED: traMADol 50 MG TAB PO PRN (17:04)
[2017-10-09] MEDS ORDERED: HYDROmorphone HCL/NS 0.5 MG/ML SYR IVP PRN (17:04)
[2017-10-09] MEDS ORDERED: oxyCODONE IR 5 MG TAB PO PRN (17:04)
[2017-10-09] MEDS ORDERED: ACETAMINOPHEN 325 MG TAB PO PRN (17:04)
[2017-10-09] MEDS ORDERED: ONDANSETRON 4 MG/2 ML VIAL IVP PRN ×3 (17:04→17:11)
[2017-10-09] MEDS ORDERED: epHEDrine SULFATE 10 MG/ML SYR ONE (17:05)
[2017-10-09] MEDS ORDERED: ONDANSETRON DISINTEGRATING 4 MG TAB PO PRN (17:05)
[2017-10-09] MEDS ORDERED: POLYETHYLENE GLYCOL 3350 17 GM PKT PO PRN (17:05)
[2017-10-09] MEDS ORDERED: METHOCARBAMOL 750 MG TAB PO PRN (17:05)
[2017-10-09] MEDS ORDERED: LACTULOSE 20 GM/30 ML UDCUP PO PRN (17:05)
[2017-10-09] MEDS ORDERED: diphenhydrAMINE 25 MG CAP PO PRN (17:05)
[2017-10-09] MEDS ORDERED: MAGNESIUM HYDROXIDE 30 ML UDCUP PO PRN (17:05)
[2017-10-09] MEDS ORDERED: BISACODYL 10 MG SUPP PR PRN (17:05)
[2017-10-09] MEDS ORDERED: MEPERIDINE 25 MG/0.5 ML AMP IVP PRN (17:11)
[2017-10-09] MEDS ORDERED: fentaNYL 100 MCG/2 ML INJ IVP PRN (17:11)
[2017-10-09] MEDS ORDERED: ACETAMINOPHEN 500 MG TAB PO PRN (17:11)
[2017-10-09] MEDS ORDERED: NALOXONE HCL 0.4 MG/ML INJ IVP PRN (17:11)
[2017-10-09] MEDS ORDERED: DIAZEPAM 5 MG/ML 1 ML SYR IVP PRN (17:11)
[2017-10-09] MEDS ORDERED: HYDROCODONE/APAP 5/325 TAB PO PRN (17:11)
[2017-10-09] MEDS ORDERED: LR 500 ML IV PRN (17:11)
[2017-10-09] MEDS ORDERED: NS W/ 20 KCl/L 1,000 ML IV SCH (17:15)
[2017-10-09] MEDS ORDERED: KETOROLAC 30 MG/1 ML SDV ONE (17:21)
--- NOTE | 2017-10-09 17:24 | POSTOPPROG ---
Post Op Note Date of Operation: 10/09/17 Surgeon: Armin Carrera Anesthesia: GET(General Endotracheal) Pre-op Diagnosis: L3/4 disc herniation Post-op Diagnosis: same Procedure: L3/4 microdiscectomy Findings: See dicated operative report Inf/Abcess present in the surg proc area at time of surgery?: No EBL: Minimal
[2017-10-09] MEDS ORDERED: IBUPROFEN 200 MG TAB PO PRN (17:27)
--- NOTE | 2017-10-09 17:27 | NEUSURGPN ---
Assessment/Plan: A: 71 yo male sp L3/4 left microdiscectomy P: -Advance activity as tolerated -Advance diet as tolerated -Optimized pain management-may use ibuprofen as well -PT/OT -DVT: TEDs, SCDs, lovenox tomorrow S:Patient in PACU with expected incisional pain. O: NAD, VSS CN II-XII grossly intact BUE/BLE 5/5 Sensation intact Incision c/d/i Neurosurgery Physical Exam - Vitals, I&O, Labs I and O 10/08/17 10/09/17 10/10/17 05:59 05:59 05:59 Intake Total 1000 Balance 1000 Weight 83.915 kg Intake: IV Infused (ml) 1000 Other: Number of Voids 3 Vital Signs Temp Pulse Resp BP Pulse Ox 37.0 C 67 16 150/91 H 98 10/09/17 15:27 10/09/17 15:54 10/09/17 15:54 10/09/17 15:54 10/09/17 15:54 ICD10 Worksheet Patient Problems: Problems Problem Status Onset Arthritis of knee, left Acute Sciatic leg pain Acute
--- NOTE | 2017-10-09 17:43 | POSTANESTH ---
Post Anesthetic Evaluation Cardiovascular Status: Normal, Stable, Similar to Pre-Op Cond Respiratory Status: Normal, Stable, Similar to Pre-op Cond. Level of Consciousness/Mental Status: Can Participate in Eval, Alert and Oriented Pain Control: Adequate, Prn Tx Ordered Nausea/Vomiting Control: Adequate, Prn Tx Ordered Complications Possibly Related to Anesthesia: None Noted
--- NOTE | 2017-10-09 18:39 | GOP ---
[f rep st] OPERATIVE REPORT DATE OF OPERATION: 10/09/2017 SURGEON: Armin Carrear MD NEUROSURGEON: Armin Carrera MD. DEMOLITIONIST: None. PREOPERATIVE DIAGNOSIS: Right L3 radiculopathy, with foraminal far lateral disk herniation. POSTOPERATIVE DIAGNOSIS: Right L3 radiculopathy, with foraminal far lateral disk herniation. PROCEDURE PERFORMED: 1. Right L3-4 far lateral microdiskectomy. 2. Use of the operative microscope. 3. O-arm/Stealth stereotactic navigation for retractor placement and disk removal. 4. Intraoperative nerve physiologic monitoring including somatosensory evoked potentials and EMG. FINDINGS: Successful diskectomy. INDICATIONS: The patient is a 71-year-old man who presents today with intractable right leg pain. Krishna goddard had previously seen my partner, Dr. Glover, and in the meantime, has had an MRI scan which s hows a roughly 1 cm foraminal disk herniation in the L3-4 foramina with significant compression of th e L3 nerve root. Given that he did not respond to a steroid injection, and was admitted to the [facility] in intractable pain, we brought him electively today for far lateral diskectomy at L3-4. DESCRIPTION OF PROCEDURE: After informed consent was obtained from the patient, the patient was brou ght to the operating room and a formal time-out was performed, identifying the patient by name, medic al record number and date of . Preoperative antibiotics were given. The endotracheal tube was placed and general endotracheal anesthesia was smoothly induced. The patient was then turned to the prone position on the Dominic table and all appropriate pressure points were padded and checked. The lumbar region was then prepped and draped in a normal sterile fashion. A stab incision was made ove r the left iliac crest, and the percutaneous navigation pin was placed into the iliac crest, and the stereotactic ring was connected to the pin. Patient was then draped and O-arm spin was obtained show ing the above anatomy from L2 to the sacrum. This navigation was then used to plan an appropriate in cision, nearly 5 cm to the right of the midline, in line with the L3-4 foramen. A 0.5 cm incision wa s then marked and made over the paraspinous muscle. The incision was then made using a 10 blade and the subcutaneous tissues were dissected using monopolar electrocautery. The fascia was opened in walt e with the incision. The lumbar paraspinous muscles were visualized and the METRx tubes were then pl aced in succession using navigation just docked onto the L3 transverse process of the inferior portio n of the L3 transverse process. At this point, an 18 mm x 8 cm quadrant retractor was placed. Again , stereotactically docking onto the lateral edge of the foramen. The operative microscope was then b rought on the field and the remainder of the procedure was performed under high-power magnification. We began by localizing the lower border of the L3 transverse process and following this into the lat eral edge of the inferior facet. The superior facet of L4 was also localized and the foramen was loc alized just beneath this. The intertransverse ligament was opened and the nerve root was then identi fied at the superior aspect just below the transverse process of L3. Inferiorly to the nerve root th e extruded disk fragment was visualized and this was carefully freed from around the nerve root using a ball-tipped nerve hook. This disk fragment was then removed measuring about 1.5 cm. A few furthe r disk fragments were visualized and removed and then the nerve was completely free and the foramen w as completely open. Once the nerve root was completely free, some Gelfoam slurry was placed around t he nerve root to control all bleeding. 40 mg of Depo-Medrol was then placed topically over the nerve root and allowed to enter the area of the foramen for postoperative inflammation. The tubular retra ctor was then carefully removed and all bleeding was controlled with bipolar electrocautery. The fas anthony over the muscle was closed using interrupted 0 Vicryl. The deep dermis was closed using interrup carlo 2-0 Vicryl, and the skin was closed using Steri-Strips. The percutaneous pin was removed and Julius ri-Strips were placed over this area as well. The patient was then extubated and was transferred to the PACU in stable condition. There were no operative complications. I was scrubbed and present for the entire procedure. All sponge and needle counts were correct at the end of the case. Blood loss was 5 cc. Fluids and urine output per the anesthesia record. There were no specimens. There were no drains. Anesthesia general endotracheal. /[id number]/MODL
--- NOTE | 2017-10-09 20:25 | GHP ---
[f rep st] HISTORY AND PHYSICAL DATE OF ADMISSION: 10/09/2017 CHIEF COMPLAINT: Back and leg pain. HISTORY OF PRESENT ILLNESS: The patient is a 71-year-old male, who was recently hospitalized and virgil gnosed with a L3-L4 disk herniation with impingement on the nerve root, and he underwent an epidural steroid injection. He had improvement in his pain for about 1 week, but now the pain has returned an d back to where it was before. He has had excruciating pain for the last 3 days, predominantly down his right leg compatible with his L3 nerve root compression seen on MRI due to this herniation. Ther e has been no urinary incontinence, retention or saddle anesthesia. He was brought directly to [facility] from the ER, and I am now seeing him in a postoperative state. He is awake, alert, in good spirit s, and feeling quite well and anxious to discharge home in the morning. He has adequate pain control at this time. PAST MEDICAL HISTORY: 1. Disk herniation. 2. Hyperlipidemia. 3. Hypothyroidism. PAST SURGICAL HISTORY: Total knee arthroplasty. MEDICATIONS: Please see computer record full detailed list. ALLERGIES: No known drug allergies. SOCIAL HISTORY: No smoking. One beer per day. Lives with his . 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 REVIEW OF SYSTEMS: Complete review of systems obtained. Review of systems is negative for constitut ional, HEENT, GI, pulmonary, cardiovascular, , hematology, skin, musculoskeletal, endocrine, and ps ychiatric except for positives and negatives as in HPI. FAMILY HISTORY: Reviewed, noncontributory to the presenting complaint. PHYSICAL EXAMINATION: GENERAL: Well-developed, well-nourished male, in no distress. VITAL SIGNS: Temperature 37.0, pulse 67, blood pressure 150/91, saturating 97% on room air. EYES: Normal conjunc tivae. Pupils are equal and reactive to light. ENT: Normal ears and nose. Hearing intact. Normal teeth. Oropharynx moist. NECK: Trachea midline. No thyromegaly. CHEST: Normal respiratory effo rt. LUNGS: Clear to auscultation bilaterally. CARDIOVASCULAR: Regular rate and rhythm. No murmur. No extremity edema. ABDOMEN: Soft, nontender. No hepatosplenomegaly. SKIN: Warm, dry, intact w ithout rash. MUSCULOSKELETAL: No cyanosis or clubbing. Strength is 5/5 in upper and lower extremit ies. NEUROLOGIC: Cranial nerves intact. Normal sensation to light touch. PSYCHIATRIC ASSESSMENT: Alert and oriented x3. Normal affect. Normal judgment. Normal memory. LABORATORY DATA: White count 6.73, hematocrit 43.1, platelets 237. Sodium 140, potassium 4.0, chlor elsie 101, bicarb 25, BUN 18, creatinine 0.8, glucose 103, INR 0.93. MEDICAL RECORD REVIEW: He was just hospitalized here recently for epidural steroid injection. Disch stefanie was on September 26, 2017. He had good pain control at that time. This case was discussed with Dr. Dominguez. He was set to admit the patient earlier today, however, p rior to being able to see him the patient was brought to surgery, and I have been asked to do the his tory and physical, postoperatively. ASSESSMENT AND PLAN: 1. L3-L4 disk herniation with right L3 radiculopathy, status post lateral microdiskectomy. Tomorrow morning we will do physical therapy and occupational therapy. We will monitor regarding pain contro l needs. 2. Hyperlipidemia. Continue statin. 3. Hypothyroidism. Continue Synthroid. CODE STATUS: Full. ADMISSION STATUS: 1. Observation. Re-evaluate tomorrow about ongoing hospitalization. 2. DVT prophylaxis. Per Neurosurgery they have written an order for Lovenox. /[id number]/MODL
[2017-10-09] MEDS: SENNOSIDES/DOCUSATE SODIUM TAB PO SCH (21:01)
[2017-10-09] MEDS ORDERED: ceFAZolin 2 GM/DEXTROSE 100 ML IV SCH (22:00)
[2017-10-10] MEDS: ceFAZolin 2 GM/SWFI 2 GM/20 ML SYR IVP SCH ×2 (00:28→08:27)
[2017-10-10] MEDS ORDERED: LEVOTHYROXINE 150 MCG TAB PO SCH (06:00)
[2017-10-10 08:22] VITALS: BP 121/95
[2017-10-10] MEDS ORDERED: ATORVASTATIN CALCIUM 40 MG TAB PO SCH (09:00)
--- NOTE | 2017-10-10 10:01 | NEUSURGPN ---
Assessment/Plan: A: 71 yo male sp L3/4 left far lateral microdiscectomy P: -Pain improved. Has a small hematoma over incision, continue ice packs -Spine precautions -PT/OT -Optimized pain management-may use ibuprofen as well -DVT: TEDs, SCDs, lovenox today -Needs follow up with Dr Carrera in 2-3 weeks -OK to dc home today -D/w Dr Carrera -Call NS with any issues/questions Subjective: Pt resting in bed, feels much better and is happy Objective: AAOx3 NAD VSS MAEx4 Motor 5/5 BLE +LT Incision dressed cdi superficial swelling noted Urinary Catheter in Place: No - Physician Discussed Patient with : De[facility] Neurosurgery Physical Exam - Vitals, I&O, Labs I and O 10/09/17 10/10/17 10/11/17 05:59 05:59 05:59 Intake Total 2962 Output Total 660 Balance 2302 Weight 83.915 kg Intake: Oral (ml) 520 IV Intake (ml) 800 IV Infused (ml) 1642 NS W/ 20 KCl/L 1,000 ml @ 642 75 mls/hr IV CONT DEISY Rx #:[id number] Output: Urine (ml) 650 Urinal 650 Estimated Blood Loss (ml) 10 Other: Intake Quantity No Sufficient Number of Voids 3 Toilet 1 Urinal 1 Vital Signs Temp Pulse Resp BP Pulse Ox 36.6 C 82 15 121/95 H 93 10/10/17 08:00 10/10/17 08:00 10/10/17 08:00 10/10/17 08:00 10/10/17 08:00 ICD10 Worksheet Patient Problems: Problems Problem Status Onset Arthritis of knee, left Acute Sciatic leg pain Acute
[2017-10-10] MEDS: SENNOSIDES/DOCUSATE SODIUM TAB PO SCH (10:53)
--- NOTE | 2017-10-10 12:29 | ASMTCMCOM ---
CM Note CM Note Notes: Pt in for low back pain, had microdiskectomy yesterday. PT rec outpatient, OT rec home. Pt medically stable for d/c, no CM d/c needs identified. Date Signed: 10/10/2017 12:28 PM Electronically Signed By:ANCELMO Elder
--- NOTE | 2017-10-10 12:59 | GDS ---
[f rep st] DISCHARGE SUMMARY DISCHARGE DIAGNOSIS: L3-4 disk herniation. CONSULTATIONS: Neurosurgery. STUDIES AND PROCEDURE PERFORMED: Microdiskectomy. PHYSICAL EXAM: GENERAL: The patient is alert. VITAL SIGNS: Afebrile at 36.6, pulse 82, respiratory rate 17, blood pressure is 121/95. He is satur ating 93% on room air. I have seen evaluated the patient on the day of discharge. HOSPITAL COURSE: The patient is a 71-year-old male who presented to the emergency room with complain ts of back pain. He was evaluated and diagnosed with a disk herniation. During this hospitalization he received a consultation from Neurosurgery. A lateral microdiskectomy at the L3-4 level was perfo rmed. His pain is completely resolved. He is tolerating therapy. He is able to ambulate independen tly and he will be discharged home. FOLLOWUP: Followup will be in the outpatient setting with Neurosurgery as well as the patient's [facility] physician. DISCHARGE MEDICATIONS: Please refer to EMR form. /[id number]/MODL
[2017-10-10] MEDS ORDERED: ENOXAPARIN 40 MG/0.4 ML SYR SC SCH (17:00)
== END 2017-10-10 12:27 | disposition home or self-care (01) ==
LOC: F3N 14:10
PROVIDERS: ADMIT Family Medicine; ATTEND Hospitalist
PROC: 8E0WXBF Computer Assisted Procedure of Trunk Region, With Fluoroscopy (ICD-10-PCS; principal; 2017-10-09 14:45)
PROC: 00NY0ZZ Release Lumbar Spinal Cord, Open Approach (ICD-10-PCS; principal; 2017-10-09 14:45)
PROC: 0SB20ZZ Excision of Lumbar Vertebral Disc, Open Approach (ICD-10-PCS; principal; 2017-10-09 14:45)
DX: M51.16 Intervertebral disc disorders with radiculopathy, lumbar region (principal); M54.41 Lumbago with sciatica, right side; E03.9 Hypothyroidism, unspecified; E78.5 Hyperlipidemia, unspecified; Z96.652 Presence of left artificial knee joint
CPT/HCPCS: 0054T; 63030; 76001; 97161; 97165; G0378; G8978; G8979; G8980; G8987; G8988; G8989; J0171; J0330; J0360; J0690; J1030; J1100; J1885; J2370; J2405; J2704; J3010; J3360

== ENCOUNTER → 2017-10-13 | Outpatient (CLI) | payer OTHER ==
[~2017-10-13] MED LIST changes: -BUPI/epINEPH/KETOROLAC/morphINE IU ONE; -CALCIUM CHLORIDE 1 GM/10 ML INJ ONE; +IOPAMIDOL (ISOVUE-300) 100 ML BTL ONE; -NS IV ONE; -ROPIVACAINE 0.2% 80 MG, EPINEPHrine 0.2 MG, KETOROLAC TROMETHAMINE 30 MG, morphINE 10 M... IU ONE; -THROMBIN (BOVINE) 5,000 UNIT VIAL TP ONE; -TRANEXAMIC ACID IV ONE; -ceFAZolin 1 GM/5 ML SYR ONE
== END ==
LOC: FIMAGING 14:16
PROVIDERS: ATTEND Urology
DX: K80.20 Calculus of gallbladder without cholecystitis without obstruction (principal); K57.30 Diverticulosis of large intestine without perforation or abscess without bleeding; I77.89 Other specified disorders of arteries and arterioles
CPT/HCPCS: 74178; Q9967

== ENCOUNTER → 2017-11-11 | Outpatient (CLI) | payer OTHER | LOC: BMCIMAGING 09:11 | PROVIDERS: ATTEND Orthopaedic Surgery | DX: M17.11 Unilateral primary osteoarthritis, right knee (principal); Z96.652 Presence of left artificial knee joint ==

== ENCOUNTER → 2017-11-12 | Outpatient (CLI) | payer OTHER | LOC: FIMAGING 08:36 | PROVIDERS: ATTEND Orthopaedic Surgery | DX: Z01.818 Encounter for other preprocedural examination (principal); M17.11 Unilateral primary osteoarthritis, right knee ==

== ENCOUNTER 2017-12-22 09:18 | Inpatient (IN) | payer OTHER ==
--- NOTE | 2017-12-22 06:39 | PDIAF ---
- Diagnosis Diagnosis: right knee djd Code Status: Full Code - Medication Management Discharge Medications: Medications to Continue on Transfer Levothyroxine [Synthroid 150 mcg (*)] 150 mcg PO HS 07/18/17 [Last Taken ] Atorvastatin Calcium [Lipitor 40 mg (*)] 40 mg PO HS 09/24/17 [Last Taken ] Multivitamins [Multivitamin (*)] 1 each PO DAILY 09/24/17 [Last Taken 10/08/17] Discharge Medications: Refer to the Discharge Home Medication list for PRN reason. - Orders Services needed: Physical Therapy Diet Recommendation: no restrictions on diet Diet Texture: Regular Texture Diet Additional Instructions: TOTAL JOINT ARTHROPLASTY DISCHARGE INSTRUCTIONS 1. Your surgeon follows the [facility] protocol for reducing your risk of DVT (blood clots) following surgery. Medication will be ordered to prevent blood clots. A sudden increase in calf pain and/or swelling could indicate a blood clot in your leg. If this occurs, please call your surgeon or his/her operations and intelligence assistant. An ultrasound of the leg may be necessary to diagnose a blood clot. If you have conditions that make you a higher risk for blood clots, your surgeon may use more aggressive ways to prevent them. Notify your surgeon if you think you are a high risk for blood clots. 2. Wear your white surgical stockings (YAMEL hose) for 2 weeks. This decreases your swelling and may help prevent blood clots. It is ok to remove YAMEL hose at night time to give your legs a break. 3. Swelling and bruising in the surgical leg is common. If you feel that it is excessive, please notify your surgeon. 4. Elevate your surgical leg with the ankle above the hip several times every day. Please keep the leg straight when you elevate by putting pillows under your foot. Do not put pillows under your knee. This will make being able to fully straighten more difficult. This is uncomfortable, but try to do it as much as possible. 5. For total knee replacements use compressive wrap on your knee for 3-5 days after surgery, then you can discontinue it. 6. Use a walker or crutches for 1-2 weeks. Progress your weight-bearing as tolerated. You may start to use a cane when you feel stable and safe. 7. You will receive physical therapy instructions in the hospital. Continue those exercises at home. There are additional exercises in the total joint booklet you were given before surgery. Outpatient physical therapy will begin 7- 10 days after surgery. Please schedule this in advance. 8. Use ice on your knee at least 3-5 times every day for 30 minutes. This helps reduce pain and swelling. Also use it at night before falling asleep. 9. Leave your surgical dressing in place for 2 weeks. Your dressing is water resistant, but not waterproof. Cover it with Saran Wrap or [id number]-Hwri before showering. You may shower as soon as you feel safe entering a shower. If you notice bleeding from your incision 2 or 3 days after surgery, please notify your surgeon. 10. Due to narcotics, decreased activity and altered diet, most patients experience constipation after surgery. Use pwao-wjr-ofaoptz stool softeners while you are on narcotics. 11. You may drive a car when you are comfortable bearing weight, have good muscular control of your leg and are off narcotics. This usually occurs 2-4 weeks after surgery, depending on which leg was operated on. 12. If there are questions not addressed here, please refer the [facility] book given for more information. If you still have questions, please contact your surgeon s office. 13. If you have a life-threatening emergency, please call 911 and go to the emergency room immediately. For non-life threatening emergencies, please call your physicians office for advice before going to the emergency room. - Follow Up Care Current Providers and Referrals: Evans Freeman MD [Primary Care Provider] - Sherman Salvador MD [Medical Doctor] -
[~2017-12-22 09:18] MED LIST changes: +FAMOTIDINE 20 MG TAB PO ONE; -IOPAMIDOL (ISOVUE-300) 100 ML BTL ONE; +ROPIVACAINE 0.2% 80 MG, EPINEPHrine 0.2 MG, KETOROLAC TROMETHAMINE 30 MG, morphINE 10 M... IU ONE; +TRANEXAMIC ACID 1,000 MG in NS 100 ML IV ONE
[2017-12-22] MEDS ORDERED: ceFAZolin 2 GM/DEXTROSE 100 ML IV ONE (09:38)
[2017-12-22] MEDS ORDERED: ACETAMINOPHEN 325 MG TAB PO ONE (09:38)
[2017-12-22] MEDS ORDERED: LIDOCAINE 1% 2 ML INJ ID PRN (09:39)
[2017-12-22] MEDS ORDERED: LR 1,000 ML IV ONE (09:39)
[2017-12-22] MEDS ORDERED: FAMOTIDINE 20 MG TAB ONE (09:52)
[2017-12-22] MEDS ORDERED: PROPOFOL/EMULSION 500 MG/50 ML BOTTLE IV ONE ×2 (10:02→12:18)
[2017-12-22] MEDS ORDERED: MIDAZOLAM 2 MG/2 ML VIAL IVP ONE (10:56)
--- NOTE | 2017-12-22 10:57 | PDANEPAE ---
ANE History of Present Illness Patient presents for TKA ANE Past Medical History - Cardiovascular History Hx Hypertension: No Hx Arrhythmias: No Hx Chest Pain: No Hx Coronary Artery / Peripheral Vascular Disease: No Hx CHF / Valvular Disease: No Hx Palpitations: No Cardiovascular History Comment: HEART MURMUR - Pulmonary History Hx COPD: No Hx Asthma/Reactive Airway Disease: No Hx Recent Upper Respiratory Infection: No Hx Oxygen in Use at Home: No Hx Sleep Apnea: No Sleep Apnea Screening Result - Last Documented: Negative - Neurologic History Hx Cerebrovascular Accident: No Hx Seizures: No Hx Dementia: No - Endocrine History Hx Diabetes: No Endocrine History Comment: HYPOTHYROID - Renal History Hx Renal Disorders: No - Liver History Hx Hepatic Disorders: No - Neurological & Psychiatric Hx Hx Neurological and Psychiatric Disorders: No - Cancer History Hx Cancer: No - Congenital Disorder History Hx Congenital Disorders: No - GI History Hx Gastrointestinal Disorders: No - Other Health History Other Health History: OSTEOARTHRITIS. 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 LT ING HERNIA WITH MESH 04/2014. LT KNEE SCOPE. SALIVARY GLAND ANE Review of Systems Review of Systems: - Exercise capacity METS (RN): 5 METS ANE Patient History - Allergies Allergies/Adverse Reactions: No Known Allergies Allergy (Verified 12/22/17 10:04) - Home Medications Home Medications: Levothyroxine [Synthroid 150 mcg (*)] 150 mcg PO HS 07/18/17 [Last Taken ] Atorvastatin Calcium [Lipitor 40 mg (*)] 40 mg PO HS 09/24/17 [Last Taken ] Multivitamins [Multivitamin (*)] 1 each PO DAILY 09/24/17 [Last Taken 12/18/17] - NPO status NPO Since - Liquids (Date): 12/22/17 NPO Since - Liquids (Time): 09:45 NPO Since - Solids (Date): 12/21/17 NPO Since - Solids (Time): 20:30 - Smoking Hx Smoking Status: Never smoked ANE Labs/Vital Signs - Vital Signs Blood Pressure: 139/97 Heart Rate: 58 Respiratory Rate: 16 O2 Sat (%): 97 Height: 176.53 cm Weight: 81.647 kg ANE Physical Exam - Airway Mallampati Score: Class 2 - Pulmonary Pulmonary: no respiratory distress - Cardiovascular Cardiovascular: regular rate and rhythym - ASA Status ASA Status: II ANE Anesthesia Plan Anesthesia Plan: spinal Regional Anesthesia: single shot NB (RBA discussed)
[2017-12-22] MEDS ORDERED: THROMBIN (BOVINE) 5,000 UNIT VIAL TP ONE (11:09)
[2017-12-22] MEDS ORDERED: ceFAZolin 1 GM/5 ML SYR ONE (11:09)
[2017-12-22] MEDS ORDERED: CALCIUM CHLORIDE 1 GM/10 ML INJ ONE (11:09)
[2017-12-22] MEDS ORDERED: DEXAMETHASONE 4 MG/ML VIAL ONE (11:34)
[2017-12-22] MEDS ORDERED: ONDANSETRON 4 MG/2 ML VIAL ONE (11:34)
[2017-12-22] MEDS ORDERED: clonIDINE 1 MG/10 ML VIAL EP ONE (12:20)
[2017-12-22] MEDS ORDERED: ROPIVACAINE HCL 150 MG/30 ML INJ ONE (12:20)
[2017-12-22] MEDS ORDERED: fentaNYL 100 MCG/2 ML INJ ONE ×2 (12:29→13:51)
[2017-12-22] MEDS ORDERED: oxyCODONE IR 5 MG TAB PO PRN (13:13)
[2017-12-22] MEDS ORDERED: NALOXONE HCL 0.4 MG/ML INJ IVP PRN (13:13)
[2017-12-22] MEDS ORDERED: ONDANSETRON 4 MG/2 ML VIAL IVP PRN ×2 (13:13→13:19)
[2017-12-22] MEDS ORDERED: LR 500 ML IV PRN (13:13)
[2017-12-22] MEDS ORDERED: HYDROCODONE/APAP 5/325 TAB PO PRN (13:13)
[2017-12-22] MEDS ORDERED: BISACODYL 10 MG SUPP PR PRN (13:19)
[2017-12-22] MEDS ORDERED: TEMAZEPAM 15 MG CAP PO PRN (13:19)
[2017-12-22] MEDS ORDERED: CYCLOBENZAPRINE 10 MG TAB PO PRN (13:19)
[2017-12-22] MEDS ORDERED: POLYETHYLENE GLYCOL 3350 17 GM PKT PO PRN (13:19)
[2017-12-22] MEDS ORDERED: diphenhydrAMINE 25 MG CAP PO PRN (13:19)
[2017-12-22] MEDS ORDERED: MAGNESIUM HYDROXIDE 30 ML UDCUP PO PRN (13:19)
[2017-12-22] MEDS ORDERED: DIPHENOXYLATE/ATROPINE LOMOTIL 1 TAB PO PRN (13:19)
[2017-12-22] MEDS ORDERED: PROMETHAZINE HCL 25 MG SUPPR PR PRN (13:19)
[2017-12-22] MEDS ORDERED: PROMETHAZINE HCL 25 MG/ML INJ IVP PRN (13:19)
[2017-12-22] MEDS ORDERED: ONDANSETRON DISINTEGRATING 4 MG TAB PO PRN (13:19)
[2017-12-22] MEDS ORDERED: METOCLOPRAMIDE 10 MG/2 ML VIAL IVP PRN (13:19)
[2017-12-22] MEDS ORDERED: LACTULOSE 20 GM/30 ML UDCUP PO PRN (13:19)
--- NOTE | 2017-12-22 13:19 | POSTOPPROG ---
Post Op Note Date of Operation: 12/22/17 Surgeon: Sherman Salvador Prescription Clerk: lg Anesthesia: Spinal Pre-op Diagnosis: right knee djd Post-op Diagnosis: same Indication: same Procedure: right tka Inf/Abcess present in the surg proc area at time of surgery?: No Depth: Deep Incisional (Fascial) EBL: 100-500
[2017-12-22] MEDS ORDERED: LR 1,000 ML IV SCH (13:30)
[2017-12-22] MEDS ORDERED: TRANEXAMIC ACID 650 MG TAB PO SCH (13:30)
--- NOTE | 2017-12-22 13:50 | POSTANESTH ---
Post Anesthetic Evaluation Cardiovascular Status: Similar to Pre-Op Cond Respiratory Status: Similar to Pre-op Cond. Level of Consciousness/Mental Status: Can Participate in Eval Pain Control: Adequate, Prn Tx Ordered Nausea/Vomiting Control: Adequate, Prn Tx Ordered Complications Possibly Related to Anesthesia: None Noted
[2017-12-22] MEDS: fentaNYL 100 MCG/2 ML INJ IVP PRN ×3 (13:56→14:15)
[2017-12-22] MEDS ORDERED: oxyCODONE IR 5 MG TAB ONE (14:35)
[2017-12-22] MEDS: oxyCODONE IR 5 MG TAB PO PRN ×3 (14:40→21:27)
[2017-12-22] MEDS: ACETAMINOPHEN 325 MG TAB PO SCH ×2 (18:30→23:53)
[2017-12-22] MEDS ORDERED: ATORVASTATIN CALCIUM 40 MG TAB PO SCH (21:00)
[2017-12-22] MEDS ORDERED: LEVOTHYROXINE 150 MCG TAB PO SCH (21:00)
[2017-12-22] MEDS: ceFAZolin 2 GM/DEXTROSE 100 ML IV SCH (21:19)
[2017-12-22] MEDS: SENNOSIDES/DOCUSATE SODIUM TAB PO SCH (21:21)
[2017-12-22] MEDS: FAMOTIDINE 20 MG TAB PO SCH (21:21)
[2017-12-22] MEDS: TRANEXAMIC ACID 650 MG TAB PO SCH (21:22)
[2017-12-22] MEDS: ENOXAPARIN 30 MG/0.3 ML SYR SC SCH (21:50)
[2017-12-23] MEDS: ceFAZolin 2 GM/DEXTROSE 100 ML IV SCH (04:35)
[2017-12-23] MEDS: TRANEXAMIC ACID 650 MG TAB PO SCH (04:35)
[2017-12-23] MEDS: ACETAMINOPHEN 325 MG TAB PO SCH (06:21)
--- NOTE | 2017-12-23 07:40 | PDIAF ---
- Diagnosis Diagnosis: right knee djd Code Status: Full Code - Medication Management Discharge Medications: Medications to Continue on Transfer Levothyroxine [Synthroid 150 mcg (*)] 150 mcg PO HS 07/18/17 [Last Taken ] Atorvastatin Calcium [Lipitor 40 mg (*)] 40 mg PO HS 09/24/17 [Last Taken ] Multivitamins [Multivitamin (*)] 1 each PO DAILY 09/24/17 [Last Taken 12/18/17] oxyCODONE IR [Oxycodone Ir (*)] 5 - 10 mg PO Q3HRS PRN #65 tab 12/23/17 [Last Taken Unknown] Discharge Medications: Refer to the Discharge Home Medication list for PRN reason. - Orders Services needed: Physical Therapy Diet Recommendation: no restrictions on diet Diet Texture: Regular Texture Diet Additional Instructions: TOTAL JOINT ARTHROPLASTY DISCHARGE INSTRUCTIONS 1. Your surgeon follows the [facility] protocol for reducing your risk of DVT (blood clots) following surgery. Medication will be ordered to prevent blood clots. A sudden increase in calf pain and/or swelling could indicate a blood clot in your leg. If this occurs, please call your surgeon or his/her senior care assistant. An ultrasound of the leg may be necessary to diagnose a blood clot. If you have conditions that make you a higher risk for blood clots, your surgeon may use more aggressive ways to prevent them. Notify your surgeon if you think you are a high risk for blood clots. 2. Wear your white surgical stockings (YAMEL hose) for 2 weeks. This decreases your swelling and may help prevent blood clots. It is ok to remove YAMEL hose at night time to give your legs a break. 3. Swelling and bruising in the surgical leg is common. If you feel that it is excessive, please notify your surgeon. 4. Elevate your surgical leg with the ankle above the hip several times every day. Please keep the leg straight when you elevate by putting pillows under your foot. Do not put pillows under your knee. This will make being able to fully straighten more difficult. This is uncomfortable, but try to do it as much as possible. 5. For total knee replacements use compressive wrap on your knee for 3-5 days after surgery, then you can discontinue it. 6. Use a walker or crutches for 1-2 weeks. Progress your weight-bearing as tolerated. You may start to use a cane when you feel stable and safe. 7. You will receive physical therapy instructions in the hospital. Continue those exercises at home. There are additional exercises in the total joint booklet you were given before surgery. Outpatient physical therapy will begin 7- 10 days after surgery. Please schedule this in advance. 8. Use ice on your knee at least 3-5 times every day for 30 minutes. This helps reduce pain and swelling. Also use it at night before falling asleep. 9. Leave your surgical dressing in place for 2 weeks. Your dressing is water resistant, but not waterproof. Cover it with Saran Wrap or Yqsso-r-Yhrq before showering. You may shower as soon as you feel safe entering a shower. If you notice bleeding from your incision 2 or 3 days after surgery, please notify your surgeon. 10. Due to narcotics, decreased activity and altered diet, most patients experience constipation after surgery. Use [id number] stool softeners while you are on narcotics. 11. You may drive a car when you are comfortable bearing weight, have good muscular control of your leg and are off narcotics. This usually occurs 2-4 weeks after surgery, depending on which leg was operated on. 12. If there are questions not addressed here, please refer the [facility] book given for more information. If you still have questions, please contact your surgeon s office. 13. If you have a life-threatening emergency, please call 911 and go to the emergency room immediately. For non-life threatening emergencies, please call your physicians office for advice before going to the emergency room. - Follow Up Care Current Providers and Referrals: Evans Freeman MD [Primary Care Provider] - Sherman Salvador MD [Medical Doctor] -
--- NOTE | 2017-12-23 07:41 | SOAPPROG ---
SOAP Progress Note Assessment/Plan: Assessment: s/p right tka Plan:d/c home dvt precautions reviewed f/u at two weeks 12/23/17 07:40 Subjective: no cp no sob mayur po no nausea or vomiting Objective: Vital Signs Temp Pulse Resp BP Pulse Ox 36.9 C 56 L 16 122/73 H 96 12/23/17 06:13 12/23/17 06:13 12/23/17 06:13 12/23/17 06:13 12/23/17 06:13 Laboratory Results 12/23/17 04:45 12/22/17 12/23/17 12/24/17 05:59 05:59 05:59 Intake Total 2600 Output Total 1425 Balance 1175 dressing intact intact pf, df,ehl toes warm and pink neg homans warren xrays stable anatomic alignment ICD10 Worksheet Patient Problems: Problems Problem Status Onset Arthritis of knee, left Acute Sciatic leg pain Acute
[2017-12-23 08:22] VITALS: BP 131/73
[2017-12-23] MEDS ORDERED: MULTIVITAMINS 1 EACH TAB PO SCH (09:00)
[2017-12-23] MEDS ORDERED: ASPIRIN EC 325 MG TAB PO SCH (09:00)
--- NOTE | 2017-12-23 10:16 | ASMTLACE ---
LACE Length of stay for Answers: 2 days current admission Acuity / Level of Answers: Yes Care: Did the patient have an inpatient admission? Comorbidities - select Answers: Opioid dependence all that apply / Chronic pain Other Notes: Hypothyroid # of Emergency department Answers: 3-4 visits in the last 6 months Score: 13 Date Signed: 12/23/2017 10:16 AM Electronically Signed By:ANCELMO Elder
[2017-12-23] MEDS: ENOXAPARIN 30 MG/0.3 ML SYR SC SCH ×2 (10:28→10:32)
[2017-12-23] MEDS: SENNOSIDES/DOCUSATE SODIUM TAB PO SCH (10:28)
[2017-12-23] MEDS: FAMOTIDINE 20 MG TAB PO SCH (10:28)
--- NOTE | 2017-12-23 10:28 | PDMN ---
Medical Necessity Medical necessity: change to IP; s/p R TKA r/t age, hx recent microdiskectomy, need for PT; per order 12/22/17
--- NOTE | 2017-12-23 13:40 | ASDISCHSUM ---
Discharge Information Plan Status:Home with Home Health Medically Cleared to Leave: Discharge Date:12/23/2017 12:04 PM CM D/C Disposition:Home Health Service ADT D/C Disposition:Home Health Service Projected Discharge Date:12/23/2017 11:00 AM Transportation at D/C: Discharge Delay Reason: Follow-Up Date:12/23/2017 11:00 AM Discharge Slot: Final Diagnosis: Placement Information Referral Type:*Home Health Care Services Referral ID:[id number] Provider Name:[facility] Address 1[address] Address 2: City:[place] Selection Factors: State:[place] Patient Contact Information Contact Name:JANETH Relationship: Address:[address] Work Phone: City:[place] Alternate Phone: State/Zip Code:[place] [address] Email: Financial Information Financial Class:Medicare Primary Plan Desc:MEDICARE INPATIENT Primary Plan Number:[id number] Secondary Plan Desc:BER[employer]A JORDAN INDEMNITY Secondary Plan Number:[id number] Assessment Information LACE LACE Length of stay for Answers: 2 days current admission Acuity / Level of Answers: Yes Care: Did the patient have an inpatient admission? Comorbidities - select Answers: Opioid dependence all that apply / Chronic pain Other Notes: Hypothyroid # of Emergency department Answers: 3-4 visits in the last 6 months Score: 13 Date Signed: 12/23/2017 10:16 AM Electronically Signed By:ANCELMO Elder [facility] CM Progress Note CM Note CM Note Notes: Pt medically stable for d/c with [facility] PT. Orders to be obtained via [facility]. Date Signed: 12/23/2017 01:39 PM Electronically Signed By:ANCELMO Elder Intervention Information
--- NOTE | 2017-12-23 13:40 | ASMTCMCOM ---
CM Note CM Note Notes: Pt medically stable for d/c with [facility] PT. Orders to be obtained via [facility]. Date Signed: 12/23/2017 01:39 PM Electronically Signed By:ANCELMO Elder
--- NOTE | 2018-01-06 13:01 | GDS ---
[f rep st] DISCHARGE SUMMARY ADMIT DIAGNOSIS: Right knee degenerative joint disease. DISCHARGE DIAGNOSIS: Right knee degenerative joint disease. PROCEDURE: Right total knee arthroplasty-MAKOplasty. OPERATIVE INDICATIONS: The patient is a 72-year-old gentleman, who returns for elective right total knee replacement. He has end-stage arthritis. He wishes to proceed. Appropriate consent was signed and placed on patient's chart. HOSPITAL COURSE: The patient was admitted to the hospital floor after uncomplicated total knee arthr oplasty. He tolerated the procedure well. Overnight, he had no complications. At the time of disch arge, he is tolerating an oral diet. Pain is well controlled on oral medicines. He is voiding witho ut difficulty. Dressing is clean, dry, and intact. He has no calf swelling or tenderness. X-rays a re stable with anatomic alignment. No fracture or lucency. DISCHARGE MEDICATIONS: Oxycodone 5 mg 1-2 every 4 hours p.r.n. pain, aspirin 325 mg p.o. daily. FOLLOWUP: In 2 weeks. Seek attention for increasing redness, swelling, drainage, discharge, or othe r focal complaints. /[id number]/MODL
--- NOTE | 2018-01-06 13:11 | GOP ---
[f rep st] OPERATIVE REPORT DATE OF OPERATION: 12/22/2017 SURGEON: Sherman Salvador MD TALLOW MAKER: Jassi Sheets, CLINICAL SYSTEMS ANALYST, COMPLIANCE FIELD TECHNICIAN, office support assistant was a medical necessity for the entirety of the case. PREOPERATIVE DIAGNOSIS: Right knee degenerative joint disease. POSTOPERATIVE DIAGNOSIS: Right knee degenerative joint disease. PROCEDURE PERFORMED: Right total knee arthroplasty, MAKOplasty. FINDINGS: SPECIMENS: Pathology, the bony cuts. DESCRIPTION OF PROCEDURE: The patient was identified in the preanesthesia area. The right knee brenton rly demarcated as the operative site with an indelible marker. He was given 2 g of Ancef intravenous ly on route to the operative suite. In the OR spinal anesthetic was placed. Appropriate time-out pr ocedure was carried out. The right lower extremity was then sterilely prepped and draped in usual fa shion. A tourniquet had been applied to the upper thigh. Appropriate time-out procedure was carried out. The limb was then exsanguinated and the tourniquet inflated to 275 mmHg. A standard anterior midline incision was made. Thick subcutaneous flaps were elevated followed by medial parapatellar ar throtomy. Subperiosteal elevation was carried out to the mid coronal plane both medially and lateral ly. Retractors were placed across the medial lateral aspect of the knee. The knee was brought to a flexed position. There were gross tricompartmental changes. Two pins were then placed across the me dial femur for the femoral reference array and followed by the femoral check point. A tibial referen ce array was affixed through a separate percutaneous incision over the distal colbert and a tibial check point was placed. All bony landmarks were entered into the computer in standard fashion. The alberto nal osteophytes were withdrawn and the knee was balanced through the flexion-extension arc with soft tissue releases, and software manipulation. Using the MAKOplasty robot, resections were made for a s ize 7 femur, size 6 tibia and ultimately a trial was carried out over a 6 x 13 mm polyethylene. This allowed full extension of the knee and flexion without instability throughout the flexion-extension arc. The trial components were withdrawn. In a sequential fashion the size 6 tibia was press-fit in to place, a size 7 femur, press-fit into place and a 6 x 13 mm polyethylene spacer was placed and con firmed to be fully seated. The knee would come to full extension with neutral limb alignment and fle xion to 130 degrees without instability. The patella was then everted cut in a freehand cutting tech nique. Drill holes were made for a size 40 patella and a press-fit patella was then placed and confi rmed to be fully seated. The patella tracked centrally through the flexion extension arc. The wound was copiously irrigated. The tissue injected with a joint cocktail of ropivacaine, morphine, [place] l, and epinephrine. The medial parapatellar arthrotomy closed using #1 Ethibond suture. The knee in stilled with a platelet-rich plasma solution. The subcutaneous tissue closed using 2-0 Monocryl and the skin closed using a Zipfix closure. Sterile dressing was applied. The patient was awakened, ext ubated and taken to recovery room in good stable condition. OPERATIVE INDICATIONS: The patient is a 72-year-old gentleman, who returns for elective right total knee replacement. He has end-stage arthritis. He has failed all attempts at conservative management . I have, therefore, recommended operative intervention. TOTAL TOURNIQUET TIME: 60 minutes. COMPLICATIONS: None. IMPLANTS: The Congress triathlon knee size 7 posterior stabilized femur, size 6 tibia, 6 x 13 mm poly ethylene spacer and a size 40 metal-backed patella. /[id number]/MODL
== END 2017-12-23 12:04 | disposition home health service (06) | DRG 470 ==
LOC: F3N 09:18
PROVIDERS: ADMIT Orthopaedic Surgery; ATTEND Orthopaedic Surgery
PROC: 0SRC0JZ Replacement of Right Knee Joint with Synthetic Substitute, Open Approach (ICD-10-PCS; principal; 2017-12-22 11:00)
DX: M17.11 Unilateral primary osteoarthritis, right knee (principal); E03.9 Hypothyroidism, unspecified
CPT/HCPCS: 97116-GP; 97161-GP; 97165-GO; 97530-GP; 97535-GO; G8978-GP-CK; G8979-GP-CI; G8980-GP-CI; G8987-GO-CI; G8988-GO-CI; G8989-GO-CI; J0171; J0690; J0735; J1100; J1650; J1885; J2250; J2270; J2405; J2704; J2795; J3010

== ENCOUNTER → 2018-02-04 | Outpatient (CLI) | payer OTHER | LOC: BMCIMAGING 09:32 | PROVIDERS: ATTEND Physician Assistant | DX: Z47.1 Aftercare following joint replacement surgery (principal); Z96.651 Presence of right artificial knee joint ==

== ENCOUNTER → 2018-06-29 | Outpatient (CLI) | payer OTHER | LOC: BMCIMAGING 14:46 | PROVIDERS: ATTEND Orthopaedic Surgery | DX: Z47.1 Aftercare following joint replacement surgery (principal); Z96.651 Presence of right artificial knee joint ==

== ENCOUNTER → 2018-10-07 | Day surgery (SDC) | payer OTHER ==
[~2018-10-07] MED LIST changes: +ACETAMINOPHEN 325 MG TAB PO ONE; +ASPIRIN EC 325 MG TAB PO ONE; +ATROPINE SULFATE 1 MG/10 ML SYR IVP PRN; +DIAZEPAM 5 MG TAB PO ONE; +HYDROCODONE/APAP 5/325 TAB PO PRN; +IOPAMIDOL (ISOVUE-370) 150 ML BTL IV ONE; +LIDOCAINE 1% 300 MG/30 ML SDV ONE; +MIDAZOLAM 2 MG/2 ML VIAL ONE; +NITROGLYCERIN 0.4 MG BTL SL PRN; +NS 1,000 ML IV ONE; +ONDANSETRON 4 MG/2 ML VIAL IVP PRN; +OXYCODONE/APAP 5/325 TAB PO PRN; -ROPIVACAINE 0.2% 80 MG, EPINEPHrine 0.2 MG, KETOROLAC TROMETHAMINE 30 MG, morphINE 10 M... IU ONE; -TRANEXAMIC ACID 1,000 MG in NS 100 ML IV ONE; +diphenhydrAMINE 25 MG CAP PO ONE; +fentaNYL 100 MCG/2 ML INJ ONE
== END | disposition home or self-care (01) ==
DX: I35.0 Nonrheumatic aortic (valve) stenosis (principal); I10 Essential (primary) hypertension; E78.5 Hyperlipidemia, unspecified; E03.9 Hypothyroidism, unspecified

== ENCOUNTER 2018-10-23 09:18 | Inpatient (IN) | payer OTHER ==
[2018-10-23] MEDS ORDERED: MUPIROCIN 2% 22 GM OINT NS ONE (09:21)
[2018-10-23] MEDS ORDERED: CITRATE DEXTROSE SOLN 500 ML BAG MISC ONE (09:21)
[2018-10-23] MEDS ORDERED: AMINOCAPROIC ACID 5 GM/20 ML VIAL IV ONE (09:21)
[2018-10-23] MEDS ORDERED: ceFAZolin 2 GM/DEXTROSE 100 ML IV ONE (09:21)
[2018-10-23] MEDS ORDERED: niCARdipine/NACL 200 ML IV ONE (09:21)
[2018-10-23] MEDS ORDERED: LR 1,000 ML IV ONE (09:22)
[2018-10-23] MEDS ORDERED: PHENYLEPHRINE HCL 50 MG in NS 250 ML IV ONE (10:00)
[2018-10-23] MEDS ORDERED: NOREPINEPHRINE BITARTRATE 16 MG in NS 250 ML IV ONE (10:00)
[2018-10-23] MEDS ORDERED: INSULIN REGULAR HUMAN 100 UNIT in NS 100 ML IV ONE (10:00)
[2018-10-23] MEDS ORDERED: MANNITOL 25% 12.5 GM/50 ML VIAL IVP ONE (10:00)
[2018-10-23] MEDS ORDERED: DOBUTamine/DEXTROSE 250 ML IV SCH (10:00)
[2018-10-23] MEDS ORDERED: CARDIOPLEGIC SOLUTION 1,052.8 ML PF ONE (10:00)
[2018-10-23] MEDS ORDERED: PROTAMINE SULFATE 50 MG/5 ML VIAL IVP ONE (10:08)
[2018-10-23] MEDS ORDERED: MILRINONE/DEXTROSE/100 ML BAG IV ONE (10:08)
[2018-10-23] MEDS ORDERED: CALCIUM CHLORIDE 1 GM/10 ML INJ ONE ×3 (10:08→10:13)
[2018-10-23] MEDS ORDERED: NA BICARBONATE 50 MEQ/50 ML VIAL ONE ×2 (10:09→19:39)
[2018-10-23] MEDS ORDERED: AMINOCAPROIC ACID 5 GM/20 ML VIAL ONE ×2 (10:09→10:13)
[2018-10-23] MEDS ORDERED: HEPARIN 10,000 UNIT/10 ML MDV (1,000 UNIT/ML) ONE ×2 (10:09→10:13)
[2018-10-23] MEDS ORDERED: niCARdipine/NACL/200 ML BAG IV ONE (10:09)
[2018-10-23] MEDS ORDERED: ceFAZolin 1 GM VIAL ONE (10:10)
[2018-10-23] MEDS ORDERED: ADENOSINE 6 MG/2 ML VIAL ONE (10:10)
[2018-10-23] MEDS ORDERED: NITROGLYCERIN/D5W 50 MG/250 ML BOTTLE IV ONE (10:10)
[2018-10-23] MEDS ORDERED: AMIODARONE HCL 150 MG/3 ML VIAL ONE ×2 (10:10→10:14)
[2018-10-23] MEDS ORDERED: DOPamine/DEXTROSE 400 MG/250 ML BAG IV ONE (10:10)
[2018-10-23] MEDS ORDERED: CITRATE DEXTROSE SOLN 500 ML BAG ONE (10:13)
[2018-10-23] MEDS ORDERED: LIDOCAINE 2% 100 MG/5 ML SYR ONE (10:13)
[2018-10-23] MEDS ORDERED: ALBUMIN 5% 250 ML BOTTLE IV ONE ×2 (10:13→14:02)
[2018-10-23] MEDS ORDERED: MAGNESIUM SULFATE 1 GM/2 ML VIAL ONE (10:14)
[2018-10-23] MEDS ORDERED: methylPREDNISolone SOD SUCC 1 GM/8 ML VIAL ONE (10:14)
[2018-10-23] MEDS ORDERED: MIDAZOLAM 2 MG/2 ML VIAL IVP ONE (12:21)
--- NOTE | 2018-10-23 12:21 | PDANEPAE ---
ANE History of Present Illness 73 YO for AVR ANE Past Medical History - Cardiovascular History Hx Hypertension: Yes Hx Arrhythmias: Yes Hx Chest Pain: No Hx Coronary Artery / Peripheral Vascular Disease: No Hx CHF / Valvular Disease: Yes Hx Palpitations: No Cardiovascular History Comment: heart murmur. hyperlipidemia. severe aortic stenosis. dizziness/ light-headedness. followed by [facility] - Pulmonary History Hx COPD: No Hx Asthma/Reactive Airway Disease: No Hx Recent Upper Respiratory Infection: No Hx Oxygen in Use at Home: No Hx Sleep Apnea: No Sleep Apnea Screening Result - Last Documented: Positive Pulmonary History Comment: rika triggers - Neurologic History Hx Cerebrovascular Accident: No Hx Seizures: No Hx Dementia: No - Endocrine History Hx Diabetes: No Endocrine History Comment: hypothyroidism - Renal History Hx Renal Disorders: No - Liver History Hx Hepatic Disorders: No - Neurological & Psychiatric Hx Hx Neurological and Psychiatric Disorders: No - Cancer History Hx Cancer: No - Congenital Disorder History Hx Congenital Disorders: No - GI History Hx Gastrointestinal Disorders: No - Other Health History Other Health History: bilateral hearing aides. wears glasses. 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 12/22/17 right TKA with Repine. right L3-4 microdiscectomy with Carrera. 08/18/17 left TKA with Repine. COLONOSCOPY WITH POLYP REMVL 06/2017. LT ING HERNIA WITH MESH 04/2014. LT KNEE SCOPE. SALIVARY GLAND ANE Review of Systems Review of Systems: - Exercise capacity METS (RN): 4 METS ANE Patient History - Allergies Allergies/Adverse Reactions: celecoxib [From Celebrex] Allergy (Verified 10/20/18 09:21) Blood Pressure Spikes - Home Medications Home Medications: Levothyroxine [Synthroid 150 mcg (*)] 150 mcg PO HS 07/18/17 [Last Taken ] Multivitamins [Multivitamin (*)] 1 each PO DAILY 09/24/17 [Last Taken 10/22/18] Acetaminophen [Tylenol ES 500 mg (*)] 500 mg PO HS 10/07/18 [Last Taken 10/22/18 ] Aspirin [Aspirin 325 mg (*)] 325 mg PO DAILY 10/07/18 [Last Taken 10/22/18] Simvastatin [Zocor] 40 mg PO HS 10/07/18 [Last Taken 10/22/18] amLODIPine BESYLATE [Norvasc 5 mg (*)] 7.5 mg PO DAILY 10/07/18 [Last Taken ] - NPO status NPO Status: no food or drink >8 hours NPO Since - Liquids (Date): 10/23/18 NPO Since - Liquids (Time): 07:00 NPO Since - Solids (Date): 10/22/18 NPO Since - Solids (Time): 20:30 - Smoking Hx Smoking Status: Never smoked - Family Anes Hx Family Hx Anesthesia Complications: none ANE Labs/Vital Signs - Vital Signs Blood Pressure: 144/100 Heart Rate: 64 O2 Sat (%): 97 Height: 5 ft 8.9 in Weight: 86.183 kg ANE Physical Exam - Airway Neck exam: FROM Mallampati Score: Class 2 Mouth exam: normal dental/mouth exam - Pulmonary Pulmonary: no respiratory distress - Cardiovascular Cardiovascular: regular rate and rhythym - ASA Status ASA Status: III ANE Anesthesia Plan Anesthesia Plan: general endotracheal anesthesia Lines/Monitors: arterial line, central line, TUTU
[2018-10-23] MEDS ORDERED: REMIFENTANIL HCL 1 MG VIAL ONE (12:35)
[2018-10-23] MEDS ORDERED: PROPOFOL/EMULSION 500 MG/50 ML BOTTLE IV ONE ×2 (12:35→14:59)
[2018-10-23] MEDS ORDERED: fentaNYL 100 MCG/2 ML INJ ONE (12:35)
[2018-10-23] MEDS ORDERED: ROCURONIUM 100 MG/10 ML VIAL ONE (12:38)
[2018-10-23] MEDS ORDERED: PHENYLEPHRINE HCL 100 MCG/ML SYR ONE (12:41)
[2018-10-23] MEDS ORDERED: DEXAMETHASONE 4 MG/ML VIAL ONE (12:41)
--- NOTE | 2018-10-23 12:41 | PDHPUP ---
History & Physical Update H&P update statement: This history and physical update is based on an assessment of the patient which was completed after admission or registration (within 24 hours), but prior to the surgery/procedure. H&P update: no change in patient's condition since H&P completed (AVR - tissue)
[2018-10-23] MEDS ORDERED: HYDROmorphONE/DILAUDID 2 MG/ML INJ ONE (14:11)
--- NOTE | 2018-10-23 15:50 | POSTOPPROG ---
Post Op Note Date of Operation: 10/23/18 Surgeon: Louis Nash Assistant: Boom KAPLAN Anesthesiologist: Dr. Bosch Anesthesia: GET(General Endotracheal) Pre-op Diagnosis: severe Post-op Diagnosis: same Procedure: AVR #25 Intuity Findings: see OR report Inf/Abcess present in the surg proc area at time of surgery?: No Depth: Organ Space EBL: 500-1000 Complications: none Drains: Other (2 mediastinal chest tubes y'd) Specimen(s): aortic valve
[2018-10-23] MEDS ORDERED: fentaNYL 250 MCG/5 ML INJ ONE (15:53)
[2018-10-23] MEDS ORDERED: ROCURONIUM 50 MG/5 ML VIAL ONE (15:53)
[2018-10-23] MEDS ORDERED: DESMOPRESSIN ACETATE 4 MCG/ML INJ IVP ONE (17:00)
[2018-10-23] MEDS ORDERED: NS IV ONE (17:00)
[2018-10-23] MEDS ORDERED: DESMOPRESSIN ACETATE IV ONE (17:00)
[2018-10-23] MEDS ORDERED: CEPACOL LOZENGE PO PRN (17:08)
[2018-10-23] MEDS ORDERED: D50W 25 GM/50 ML SYR IVP PRN (17:08)
[2018-10-23] MEDS ORDERED: ALBUMIN 5% 250 ML IV PRN (17:08)
[2018-10-23] MEDS ORDERED: METOCLOPRAMIDE 10 MG/2 ML VIAL IVP PRN (17:08)
[2018-10-23] MEDS ORDERED: MAGNESIUM HYDROXIDE 30 ML UDCUP PO PRN (17:08)
[2018-10-23] MEDS ORDERED: PANTOPRAZOLE SODIUM 40 MG VIAL IVP ONE (17:08)
[2018-10-23] MEDS ORDERED: ACETAMINOPHEN 650 MG SUPP PR PRN (17:08)
[2018-10-23] MEDS ORDERED: MEPERIDINE 25 MG/0.5 ML AMP IVP PRN (17:08)
[2018-10-23] MEDS ORDERED: ONDANSETRON 4 MG/2 ML VIAL IVP PRN (17:08)
[2018-10-23] MEDS ORDERED: POLYETHYLENE GLYCOL 3350 17 GM PKT PO PRN (17:08)
[2018-10-23] MEDS ORDERED: SODIUM CL NASAL 45 ML BTL EACHNARE PRN (17:08)
[2018-10-23] MEDS ORDERED: BISACODYL 10 MG SUPP PR PRN (17:08)
[2018-10-23] MEDS ORDERED: ONDANSETRON DISINTEGRATING 4 MG TAB PO PRN (17:08)
[2018-10-23] MEDS ORDERED: ACETAMINOPHEN 325 MG TAB PO PRN (17:08)
[2018-10-23 17:14] LABS: INR 1.37 (0.83-1.16); PROTIME(PATIENT) 16.3 SEC (12.0-15.0)
[2018-10-23] MEDS ORDERED: NS 1,000 ML IV SCH (17:15)
[2018-10-23] MEDS ORDERED: INSULIN REGULAR HUMAN 100 UNIT in NS 100 ML IV SCH (17:30)
--- NOTE | 2018-10-23 17:32 | PDMN ---
Medical Necessity Medical necessity: [facility] IP only surgery; cpt 38370 AVR
--- NOTE | 2018-10-23 18:05 | GOP ---
[f rep st] OPERATIVE REPORT DATE OF OPERATION: 10/23/2018 SURGEON: Louis Nash MD SALMON GILLNET VESSEL OPERATOR: Sherman Nur PA-C. PREOPERATIVE DIAGNOSIS: Severe aortic stenosis. POSTOPERATIVE DIAGNOSIS: Severe aortic stenosis. PROCEDURE PERFORMED: Aortic valve replacement with a 25 mm Lindsey Intuity bioprosthesis. FINDINGS: The pericardial space was free. The aorta was soft. The valve was trileaflet and heavily calcified. INDICATIONS: A 73-year-old gentleman who was recently found to have severe aortic stenosis. He was recommended to undergo aortic valve replacement. DESCRIPTION OF PROCEDURE: Patient taken to the operating room and placed on the operating table in the supine position. After the induction of general anesthesia and single-lumen tracheal tube intubation, patient was prepped and draped sterilely. A standard median sternotomy was performed. The patient was fully heparinized and cannulated with a 8.0 Soft-Flow aortic cannula, as well as a dual-stage venous right atrial cannula. Cardiopulmonary bypass was instituted. The cross-clamp was applied and the heart was arrested with 1 L of [place] solution. The aorta was opened and the trileaflet valve was excised. It was sized to a 25 mm Lindsey Intuity bioprosthesis. Three sutures were then placed at the charley of each of the leaflets and the valve was seated without difficulty. The balloon was inflated and fully deployed. Next, the aorta was then closed in 2 layers and the cross-clamp was removed. Mediastinal chest drains were placed, as well as atrial and ventricular pacing wires. The patient was from bypass without difficulty. In the post pump transesophageal echo, it shows a normally functioning bioprosthetic valve in the aortic position. Once protamine had been administered, there was still some ongoing microvascular bleeding which required platelet transfusion. After about 90 minutes of working on hemostasis, the patient was ultimately closed for the final time and skin was closed with running Vicryl suture. The patient tolerated this well and was returned to the ICU in stable condition. /[id number]/MODL MTDD
[2018-10-23] MEDS ORDERED: NA BICARBONATE 50 MEQ/50 ML VIAL IV ONE (19:15)
[2018-10-23] MEDS: fentaNYL 100 MCG/2 ML INJ IVP PRN ×2 (19:25→21:24)
[2018-10-23] MEDS: FAMOTIDINE 20 MG/NACL 50 ML IV SCH (19:26)
[2018-10-23] MEDS: POTASSIUM Cl (KCl) 50 ML IV PRN ×2 (20:00→20:48)
[2018-10-23] MEDS: ceFAZolin 2 GM/DEXTROSE 100 ML IV SCH (20:47)
[2018-10-23] MEDS: CHLORHEXIDINE GLUCONATE 15 ML UDL PO SCH (21:43)
[2018-10-23] MEDS: MUPIROCIN 2% 22 GM OINT NS SCH (21:43)
[2018-10-23] MEDS ORDERED: KETOROLAC 15 MG/1 ML SDV IVP ONE (21:45)
[2018-10-24] MEDS: HYDROCODONE/APAP 5/325 TAB PO PRN ×5 (00:03→22:16)
[2018-10-24] MEDS: fentaNYL 100 MCG/2 ML INJ IVP PRN (04:13)
[2018-10-24] MEDS: ceFAZolin 2 GM/DEXTROSE 100 ML IV SCH ×3 (05:27→22:12)
[2018-10-24 05:45] LABS: PLATELET COUNT 107 10^3/uL (150-400)
[2018-10-24 05:48] LABS: INR 1.25 (0.83-1.16); PROTIME(PATIENT) 15.2 SEC (12.0-15.0)
--- NOTE | 2018-10-24 06:50 | SOAPPROG ---
SOAP Progress Note Assessment/Plan: POD#1 s/p AVR #25 Intuity Severe aortic valve stenosis w preserved EF s/p AVR (tissue) -well-seated valve wo PVL -plan for thromboprophylaxis with coumadin, INR goal 2-3 for 8 weeks when mild coagulopathy resolves -TTE prior to discharge Acute blood loss anemia with post-operative coagulopathy -post-CPB requiring 1 platelet and DDAVP transfusion -DVT ppx with SCDs, planned warfarin therapy Acute pulmonary insufficiency -extubation per Dr. Do HTN/HLD -plan to restart home Norvasc and simvastatin when appropriate -change ASA 325 to 81 Hypothyroidism -home Synthroid Dispo: Remove AL/FC/[place] Chest tubes to water seal Wrap/cap V wires PTOT to eval/treat Anticipate PCU later today Subjective: Denies SOB/significant pain Objective: Vital Signs Temp Pulse Resp BP Pulse Ox 37.1 C 69 22 H 123/56 H 92 10/24/18 06:00 10/24/18 06:00 10/24/18 06:00 10/24/18 06:00 10/24/18 06:00 Laboratory Results 10/24/18 05:30 10/24/18 05:30 10/23/18 10/24/18 10/25/18 05:59 05:59 05:59 Intake Total 2253 Output Total 1285 Balance 968 PT 15.2 SEC (12.0-15.0) H 10/24/18 05:30 INR 1.25 (0.83-1.16) H 10/24/18 05:30 - Physical Exam General Appearance: WD/WN, alert, no apparent distress EENT: No scleral icterus (R), No scleral icterus (L) Neck: normal inspection Respiratory: No respiratory distress Cardiac/Chest: regular rate, rhythm, s1s2 Abdomen: non-tender, soft, No distended Skin: normal color, warm/dry Extremities: pedal edema Neuro/Psych: no motor/sensory deficits, alert Chest tubes 390cc/12hr ICD10 Worksheet Patient Problems: Problems Problem Status Onset Acute blood loss anemia Acute S/P AVR Acute Arthritis of knee, left Acute Sciatic leg pain Acute
--- NOTE | 2018-10-24 07:16 | POSTANESTH ---
Post Anesthetic Evaluation Cardiovascular Status: Normal, Stable Respiratory Status: Tx Decrease in SpO2 Level of Consciousness/Mental Status: Can Participate in Eval Pain Control: Adequate, Prn Tx Ordered Nausea/Vomiting Control: Adequate, Prn Tx Ordered Complications Possibly Related to Anesthesia: None Noted
[2018-10-24] MEDS ORDERED: traMADol 50 MG TAB PO PRN (09:27)
[2018-10-24] MEDS: FAMOTIDINE 20 MG/NACL 50 ML IV SCH (09:29)
[2018-10-24] MEDS: MUPIROCIN 2% 22 GM OINT NS SCH ×2 (11:01→22:18)
[2018-10-24] MEDS: CHLORHEXIDINE GLUCONATE 15 ML UDL PO SCH (11:03)
--- NOTE | 2018-10-24 16:26 | ASMTCMCOM ---
CM Note CM Note Notes: Pt is a 73 yo M in with Aortic Stenosis. At this time PT/OT recommending pt go home independently with support from his and outpatient follow-up. No CM needs identified at this time. CM available if needs arise. Plan: Independent Date Signed: 10/24/2018 04:26 PM Electronically Signed By:BROOKS Kerns
[2018-10-24] MEDS ORDERED: ASPIRIN 81 MG CHEWABLE TAB TUBE PRN (17:08)
[2018-10-24] MEDS: ASPIRIN 81 MG CHEWABLE TAB PO SCH (17:43)
[2018-10-24] MEDS: PANTOPRAZOLE SODIUM 40 MG TAB PO SCH (17:43)
[2018-10-24] MEDS: SENNOSIDES/DOCUSATE SODIUM TAB PO SCH (22:16)
[2018-10-24] MEDS: LEVOTHYROXINE 150 MCG TAB PO SCH (22:16)
[2018-10-25] MEDS: HYDROCODONE/APAP 5/325 TAB PO PRN ×3 (03:38→21:00)
[2018-10-25 04:02] LABS: PLATELET COUNT 85 10^3/uL (150-400)
[2018-10-25 04:10] LABS: INR 1.15 (0.83-1.16); PROTIME(PATIENT) 14.2 SEC (12.0-15.0)
[2018-10-25] MEDS: ceFAZolin 2 GM/DEXTROSE 100 ML IV SCH (05:09)
--- NOTE | 2018-10-25 06:45 | SOAPPROG ---
SOAP Progress Note Assessment/Plan: POD#2 s/p AVR #25 Intuity Severe aortic valve stenosis w preserved EF s/p AVR (tissue) -well-seated valve wo PVL -plan for thromboprophylaxis with coumadin, INR goal 2-3 -TTE prior to discharge Acute blood loss anemia with post-operative coagulopathy -post-CPB requiring 1 platelet and DDAVP transfusion -DVT ppx with SCDs, planned warfarin therapy Acute pulmonary insufficiency -extubation per Dr. Do HTN/HLD -plan to restart home Norvasc and simvastatin when appropriate -change ASA 325 to 81 Hypothyroidism -home Synthroid PTOT -rec home with outpt rehab, agree Dispo: Chest tubes removed today TCPW until tomorrow POD#3 Start coumadin therapy IV diuresis Routine TTE tomorrow Anticipate discharge POD 4 or 5 Subjective: Fatigued Objective: Vital Signs Temp Pulse Resp BP Pulse Ox 36.4 C 78 18 128/72 H 91 L 10/25/18 03:43 10/25/18 03:43 10/25/18 03:43 10/25/18 03:43 10/25/18 03:43 Laboratory Results 10/25/18 03:50 10/25/18 03:50 10/24/18 10/25/18 10/26/18 05:59 05:59 05:59 Intake Total 2253 1515 110 Output Total 1285 960 Balance 968 555 110 PT 14.2 SEC (12.0-15.0) 10/25/18 03:50 INR 1.15 (0.83-1.16) 10/25/18 03:50 - Physical Exam General Appearance: WD/WN, alert, no apparent distress EENT: No scleral icterus (R), No scleral icterus (L) Neck: normal inspection Respiratory: No respiratory distress Cardiac/Chest: regular rate, rhythm, s1s2 Abdomen: non-tender, soft, No distended Skin: normal color, warm/dry Extremities: pedal edema Neuro/Psych: no motor/sensory deficits, alert ICD10 Worksheet Patient Problems: Problems Problem Status Onset Acute blood loss anemia Acute S/P AVR Acute Arthritis of knee, left Acute Sciatic leg pain Acute
[2018-10-25] MEDS ORDERED: FUROSEMIDE 40 MG/4 ML VIAL IVP ONE (08:31)
[2018-10-25] MEDS ORDERED: POTASSIUM CL 10 MEQ TAB PO ONE (08:32)
[2018-10-25] MEDS: SENNOSIDES/DOCUSATE SODIUM TAB PO SCH ×2 (09:08→21:02)
[2018-10-25] MEDS: ASPIRIN 81 MG CHEWABLE TAB PO SCH (09:08)
[2018-10-25] MEDS: PANTOPRAZOLE SODIUM 40 MG TAB PO SCH (09:08)
[2018-10-25] MEDS: MUPIROCIN 2% 22 GM OINT NS SCH (09:17)
[2018-10-25] MEDS ORDERED: WARFARIN SODIUM 2 MG TAB PO ONE (16:00)
[2018-10-25] MEDS: LEVOTHYROXINE 150 MCG TAB PO SCH (21:01)
[2018-10-26] MEDS: HYDROCODONE/APAP 5/325 TAB PO PRN ×3 (04:33→23:28)
[2018-10-26 05:34] LABS: INR 1.11 (0.83-1.16); PROTIME(PATIENT) 13.9 SEC (12.0-15.0)
--- NOTE | 2018-10-26 06:57 | SOAPPROG ---
SOAP Progress Note Assessment/Plan: POD#3 s/p AVR #25 Intuity Severe aortic valve stenosis w preserved EF s/p AVR (tissue) -well-seated valve wo PVL -plan for thromboprophylaxis with coumadin, INR goal 2-3 -TTE prior to discharge Acute blood loss anemia with post-operative coagulopathy -post-CPB requiring 1 platelet and DDAVP transfusion -DVT ppx with SCDs, warfarin therapy Acute pulmonary insufficiency -extubation per Dr. Do HTN/HLD -plan to restart home Norvasc and simvastatin when appropriate -change ASA 325 to 81 Hypothyroidism -home Synthroid PTOT -rec home with outpt rehab, agree Dispo: TCPW out today Cont coumadin therapy PO diuresis Restart home statin Routine TTE today Anticipate discharge tomorrow wo services Subjective: Doing well. Objective: Vital Signs Temp Pulse Resp BP Pulse Ox 36.9 C 71 17 112/75 97 10/26/18 03:53 10/26/18 03:53 10/26/18 03:53 10/26/18 03:53 10/26/18 03:53 Laboratory Results 10/26/18 05:09 10/26/18 05:09 10/25/18 10/26/18 10/27/18 05:59 05:59 05:59 Intake Total 1515 1765 Output Total 960 2675 Balance 555 -910 PT 13.9 SEC (12.0-15.0) 10/26/18 05:09 INR 1.11 (0.83-1.16) 10/26/18 05:09 General Appearance: WD/WN, alert, no apparent distress EENT: No scleral icterus (R), No scleral icterus (L) Neck: normal inspection Respiratory: No respiratory distress Cardiac/Chest: regular rate, rhythm, s1s2 Abdomen: non-tender, soft, No distended Skin: normal color, warm/dry Extremities: pedal edema Neuro/Psych: no motor/sensory deficits, alert ICD10 Worksheet Patient Problems: Problems Problem Status Onset Acute blood loss anemia Acute S/P AVR Acute Arthritis of knee, left Acute Sciatic leg pain Acute
[2018-10-26] MEDS: SENNOSIDES/DOCUSATE SODIUM TAB PO SCH ×2 (08:50→20:12)
[2018-10-26] MEDS: PANTOPRAZOLE SODIUM 40 MG TAB PO SCH (08:50)
[2018-10-26] MEDS: ASPIRIN 81 MG CHEWABLE TAB PO SCH (08:51)
[2018-10-26] MEDS ORDERED: POTASSIUM CL 10 MEQ TAB PO SCH (09:00)
[2018-10-26] MEDS ORDERED: FUROSEMIDE 20 MG TAB PO SCH (09:00)
--- NOTE | 2018-10-26 09:51 | ASMTCMCOM ---
CM Note CM Note Notes: 10/26/2018 Case Management Note Discussed with Fernando SUBRAMANIAN this morning. Therapies recommending home with outpatient cardiac rehab. Anticipating d/c on . Case Management d/c poc: independent with family support and outpatient cardiac rehab. Case Management available if needs change. Date Signed: 10/26/2018 09:50 AM Electronically Signed By:Lety Escobar RN
--- NOTE | 2018-10-26 11:38 | ECHO ---
[email or web address] [address] Main: [phone] Echocardiography Examination Transthoracic Name: GILBERT ROJAS MR#: [id number] Study Date: 10/26/2018 Study Time: 09:16 AM Date of : 1945 Age: 73 year(s) Height: 172.7 cm (68 in.) Weight: 92.53 kg (204 lb.) BSA: 2.06 m2 Gender: Male Examination: Echo Contrast: Image Quality: Rhythm: Heart Rate: 78 bpm BP: 133 mmHg/84 mmHg Indication: Post AVR Procedure Staff Referring Physician: Oil Treater: Esteban Mishra RDCS Reading Physician: Rashid Rey MD Requesting Provider: Ordering Physician: Fernando Nur Indication: Post AVR Measurements Chambers AV/MV Label Value Normal Value Label Value Normal Value LVOT Vmax 1.38 m/s (0.7m/s - 1.1m/s) AV PGmax 21 mmHg LVOTd 2.2 cm (1.9cm - 2.1cm) AV PGmean 13 mmHg LVOT VTI 27.6 cm (18cm - 22cm) AV Vmax 2.29 m/s LVDd, 2D 4.9 cm (4.2cm - 5.9cm) GENEVA (Vmax) 2.3 cm2 LVDs, 2D 3 cm (2.1cm - 4cm) GENEVA (VTI) 2.3 cm2 IVSd, 2D 0.9 cm (0.6cm - 1.1cm) MV E Vmax 0.83 m/s LVPWd, 2D 1 cm (0.6cm - 1cm) MV A Vmax 0.68 m/s LVEF, 2D 69 % (54% - 74%) MV E/A 1.22 LVOT PGmean 4 mmHg MV E/E' lateral 8.1 LVOT Vmean 0.88 m/s MV E/E' septal 15.2 (0.45 - 1.25) LADs, 2D 3.2 cm (3cm - 4cm) MV E' septal 0.05 m/s Additional Vessels MV E' lateral 0.1 m/s Label Value Normal Value MV E/E' mean 11.07 AoRoot, MM 3.3 cm (2.2cm - 3.7cm) MV E' mean 0.08 m/s TV/PV Label Value Normal Value RA Pressure 5 mmHg RVSP 34 mmHg TR Pmax 29 mmHg Patient: GILBERT ROJAS Study Date: 10/26/2018 Page 1 of 3 09:16 AM TR Vmax 2.68 m/s PV PGmax 8 mmHg PV Vmax, Caliper 1.37 m/s (0.6m/s - 0.9m/s) Conclusions Left Ventricle: Left ventricle is normal in size. The EF is visually estimated to be 70 %. There is mild concentric left ventricular hypertrophy. There are no regional wall motion abnormalities. Grade I Diastolic Dysfunction. Aortic Valve: The aortic valve is a bioprosthesis. Normal functioning aortic valve prosthesis. Aortic Valve Measurements AV PGmean is 13 mmHg. Tricuspid Valve: Right Ventricular systolic pressure is measured at 34 mmHg. Findings Left Ventricle: Left ventricle is normal in size. Normal global systolic left ventricular function. The EF is visually estimated to be 70 %. There is mild concentric left ventricular hypertrophy. There are no regional wall motion abnormalities. Grade I Diastolic Dysfunction. Right Ventricle: Normal size right ventricle. Right ventricular systolic function is normal. Left Atrium: The left atrium is normal in size. Right Atrium: The right atrium is normal in size. Mitral Valve: Mitral valve appears structurally normal. No mitral regurgitation. There is no mitral calcification. Aortic Valve: The aortic valve is a bioprosthesis. Normal functioning aortic valve prosthesis. Aortic Valve Measurements AV Vmax is 2.29 m/s. AV PGmax is 21 mmHg. AV PGmean is 13 mmHg. Tricuspid Valve: Tricuspid valve leaflets are normal in appearance and function. No tricuspid regurgitation. Right Ventricular systolic pressure is measured at 34 mmHg. Pulmonic Valve: Pulmonic leaflets are normal in appearance and function. No pulmonic valve regurgitation is evident. Aorta: The aorta is normal. The aortic root size in M-mode measures 3.3 cm. Aorta Measurements AoRoot, MM is 3.3 cm. Pericardium: No pericardial effusion. Exam Details Patient: GILBERT ROJAS Study Date: 10/26/2018 Page 2 of 3 09:16 AM Procedure Ordered: Echo (No Signature Object) Patient: GILBERT ROJAS Study Date: 10/26/2018 Page 3 of 3 09:16 AM [id number]
--- NOTE | 2018-10-26 14:01 | CPEKG ---
Test Reason : OPEN Blood Pressure : / mmHG Vent. Rate : 066 BPM Atrial Rate : 065 BPM P-R Int : 179 ms QRS Dur : 098 ms QT Int : 440 ms P-R-T Axes : 032 -02 -11 degrees QTc Int : 461 ms Sinus rhythm Abnormal R-wave progression, early transition Borderline T abnormalities, inferior leads Confirmed by Thad Vasquez ([id number]) on 10/26/2018 2:00:39 PM Referred By: Louis Nash Confirmed By:Thad Vasquez
[2018-10-26] MEDS ORDERED: WARFARIN SODIUM 2 MG TAB PO ONE (16:00)
[2018-10-26] MEDS: LEVOTHYROXINE 150 MCG TAB PO SCH (20:11)
[2018-10-26] MEDS ORDERED: ATORVASTATIN CALCIUM 20 MG TAB PO SCH (21:00)
[2018-10-27 06:19] LABS: INR 1.07 (0.83-1.16); PROTIME(PATIENT) 13.5 SEC (12.0-15.0)
[2018-10-27] MEDS: HYDROCODONE/APAP 5/325 TAB PO PRN ×2 (06:26→14:43)
--- NOTE | 2018-10-27 07:40 | SOAPPROG ---
SOAP Progress Note Assessment/Plan: POD#3: s/p AVR #25 Intuity bioprosthesis Severe aortic valve stenosis w preserved EF s/p AVR with bioprosthesis - Coumadin, INR goal 2-3, duration 2 months - CCB/ASA for secondary prevention Acute post-op blood loss anemia with coagulopathy - s/p 1U platelet transfusion - Will recheck platelet level as trend has been flat (84 yesterday, 85 day before) h/o Raynaud's phenomenon - Pre-op on Norvasc - Will start Cardizem this AM DVT prophylaxis - SCDs Disposition - Home today Subjective: Feels well. Denies pain/SOB. Objective: Vital Signs Temp Pulse Resp BP Pulse Ox 37.1 C 80 14 128/86 H 96 10/27/18 03:39 10/27/18 03:39 10/27/18 03:39 10/27/18 03:39 10/27/18 03:39 Laboratory Results 10/26/18 05:09 10/27/18 05:45 10/26/18 10/27/18 10/28/18 05:59 05:59 05:59 Intake Total 1765 1063 Output Total 2675 1045 Balance -910 18 PT 13.5 SEC (12.0-15.0) 10/27/18 05:45 INR 1.07 (0.83-1.16) 10/27/18 05:45 Physical Exam - Physical Exam General Appearance: WD/WN, alert, no apparent distress EENT: No scleral icterus (R), No scleral icterus (L) Neck: normal inspection Respiratory: No respiratory distress Cardiac/Chest: regular rate, rhythm Abdomen: non-tender, soft, No distended Skin: normal color, warm/dry Extremities: No pedal edema Neuro/Psych: no motor/sensory deficits, alert, normal mood/affect, oriented x 3 ICD10 Worksheet Patient Problems: Problems Problem Status Onset Acute blood loss anemia Acute S/P AVR Acute Arthritis of knee, left Acute Sciatic leg pain Acute
[2018-10-27] MEDS ORDERED: DILTIAZEM CD 120 MG CAP PO SCH (09:00)
[2018-10-27] MEDS ORDERED: METOPROLOL TARTRATE 25 MG TAB PO SCH (09:00)
[2018-10-27] MEDS ORDERED: POTASSIUM CL 20 MEQ TAB PO SCH (09:00)
[2018-10-27] MEDS ORDERED: FUROSEMIDE 40 MG TAB PO SCH (09:00)
[2018-10-27] MEDS: ASPIRIN 81 MG CHEWABLE TAB PO SCH (09:23)
[2018-10-27] MEDS: PANTOPRAZOLE SODIUM 40 MG TAB PO SCH (09:24)
[2018-10-27] MEDS: SENNOSIDES/DOCUSATE SODIUM TAB PO SCH (09:24)
--- NOTE | 2018-10-27 10:17 | PDHOMEO2F ---
Home Oxygen Face to Face Home Orders: I certify that a physician or a nurse practitioner or physician's store administrative assistant has had a [id number] encounter with this patient on the date of this order due to the diagnosis listed, which relates to the primary reason the patient requires home oxygen. Alternative treatments have been tried, or considered, and deemed ineffective. It is anticipated that supplemental oxygen will result in improvement with treatment. Home oxygen qualifying diagnosis: aortic stenosis, s/p AVR, fluid overload, hypoxemia SpO2 on room air (%): 89 Frequency of home oxygen needed: continuous Home oxygen liters per minute: 1 Home oxygen delivery device: nasal cannula Concentrator: Yes E-tanks for mobility and back up: Yes If ordering portable O2, is the patient mobile in the home?: Yes I certify that, based on these findings, the home oxygen is medically necessary for this patient for the following length of time. Length of time home oxygen needed: 1 month
[2018-10-27 12:18] VITALS: BP 122/75
--- NOTE | 2018-10-27 12:18 | PDDCSUM ---
Discharge Summary Discharge Summary: ADMISSION DATE: 10/23/18 DISCHARGE DATE: 10/27/18 ADMISSION DIAGNOSES 1. Severe aortic stenosis 2. Raynaud's disease DISCHARGE DIAGNOSES 1. As above 2. Acute post-op blood loss anemia with coagulopathy PROCEDURES 1. 10/23/18 (Olayinka Fu): AVR with #25 mm Lindsey Intuity bioprosthesis HPI 62M with severe admitted electively for surgical replacement. HOSPITAL COURSE BY PROBLEM LIST 1. Severe - CCB/ASA prescribed for secondary prevention. Thromboprophylaxis with Coumadin, INR goal 2-3, duration 2 months. 2. Raynaud's disease- Norvasc switched to Cardizem as per AVR. 3. Acute post-op blood loss anemia with coagulopathy - stable s/p 1U platelet transfusion. CONDITION Good DISPOSITION Home, self-care PERTINENT DISCHARGE CLINICAL INFORMATION Vitals: 122/75, 87 SR, 92% on 1 LPM O2 Exam: NAD, SR, No respiratory distress, ND, soft, NTP, BLE +1 edema ACTIVITY Pt was instructed on activity limitations and which problems to call [facility] with. Please see Discharge Plan in chart for specifics. DISCHARGE MEDICATIONS As per Home Medication List in [facility] [employer] PENDING STUDIES/LABS 1. CXR prior to surgical follow-up FOLLOW-UP 1. Louis Nash (CT Surgery), 11/04/18, 10:30 AM 2. Jake Drake (Cardiology), to be arranged at surgical f/u
--- NOTE | 2018-10-27 14:32 | ASDISCHSUM ---
Discharge Information Plan Status:Home with No Needs Medically Cleared to Leave:10/27/2018 Discharge Date:10/27/2018 CM D/C Disposition:Home, Routine, Self-Care ADT D/C Disposition:Home, Routine, Self-Care Projected Discharge Date:10/27/2018 Transportation at D/C: Discharge Delay Reason: Follow-Up Date:10/27/2018 Discharge Slot: Final Diagnosis: Placement Information Patient Contact Information Contact Name:JANETH Relationship: Address:[address] Work Phone: City:[place] Phone: State/Zip Code:[place] [address] Email: Financial Information Financial Class:Medicare Primary Plan Desc:MEDICARE INPATIENT Primary Plan Number:[id number] Secondary Plan Desc:BERTHA NINO Secondary Plan Number:[id number] Assessment Information BC CM Progress Note CM Note CM Note Notes: Pt is a 73 yo M in with Aortic Stenosis. At this time PT/OT recommending pt go home independently with support from his and outpatient follow-up. No CM needs identified at this time. CM available if needs arise. Plan: Independent Date Signed: 10/24/2018 04:26 PM Electronically Signed By:BROOKS Kerns LACE LACGeni Length of stay for Answers: 4-6 days current admission Acuity / Level of Answers: Yes Care: Did the patient have an inpatient admission? Comorbidities - select Answers: Congestive heart failure all that apply Other Notes: HTN; HLD # of Emergency department Answers: 0 visits in the last 6 months Score: 10 Date Signed: 10/27/2018 02:30 PM Electronically Signed By:Lety Escobar RN [facility] CM Progress Note CM Note CM Note Notes: 10/26/2018 Case Management Note Discussed with Fernando SUBRAMANIAN this morning. Therapies recommending home with outpatient cardiac rehab. Anticipating d/c on . Case Management d/c poc: independent with family support and outpatient cardiac rehab. Case Management available if needs change. Date Signed: 10/26/2018 09:50 AM Electronically Signed By:Lety Escobar RN Case Management Discharge Plan Note Case Management Discharge Discharge Order Complete? Answers: Yes Patient to Obtain Answers: via Family Medications Transportation Arranged Answers: Family/Friends Discharge Comments Notes: 10/27/2018 Case Management Note Pt discharged independent with family support and follow up as directed. Date Signed: 10/27/2018 02:31 PM Electronically Signed By:Lety Escobar RN Intervention Information
[2018-10-27] MEDS ORDERED: WARFARIN SODIUM 5 MG TAB PO SCH (16:00)
== END 2018-10-27 14:55 | disposition home or self-care (01) | DRG 220 ==
LOC: F2N 09:18 → F2W 10-24 15:05
PROVIDERS: ADMIT Thoracic Surgery (Cardiothoracic Vascular Surgery); ATTEND Thoracic Surgery (Cardiothoracic Vascular Surgery)
PROC: 5A1221Z Performance of Cardiac Output, Continuous (ICD-10-PCS; principal; 2018-10-23 10:30)
PROC: 02RF0JZ Replacement of Aortic Valve with Synthetic Substitute, Open Approach (ICD-10-PCS; principal; 2018-10-23 10:30)
PROC: 30233R1 Transfusion of Nonautologous Platelets into Peripheral Vein, Percutaneous Approach (ICD-10-PCS; 2018-10-24)
DX: I35.0 Nonrheumatic aortic (valve) stenosis (principal); D62 Acute posthemorrhagic anemia; D68.4 Acquired coagulation factor deficiency; I10 Essential (primary) hypertension; I73.00 Raynaud's syndrome without gangrene; E03.9 Hypothyroidism, unspecified; Z96.659 Presence of unspecified artificial knee joint
CPT/HCPCS: 82435-PO; 82565-PO; 82947-PO; 83605-ER; 84132-PO; 84295-PO; 84520-PO; 85014-ER; 97116-GP; 97162-GP; 97166-GO; 97530-GO; 97530-GP; 97535-GO; J0153; J0282; J0690; J1100; J1170; J1250; J1265; J1644; J1815; J1885; J1940; J2001; J2150; J2250; J2260; J2270; J2370; J2405; J2597; J2704; J2720; J2765; J2930; J3010; J3475; J3480; P9041; P9073

== ENCOUNTER → 2018-11-04 | Outpatient (CLI) | payer OTHER | LOC: FIMAGING 09:08 ==